=== PATIENT | female | born 1930 | race American Indian/Alaskan Native ===

== ENCOUNTER 2016-05-31 11:38 | Emergency (ER) | payer MEDICARE ==
[2016-05-31 14:32] LABS: Urine Drugs of Abuse Note Disclamer
[2016-05-31 15:06] LABS: Hematocrit 40.5 % (30.3-42.9); Hemoglobin 13.4 gm/dl (10.1-14.3); Mean Corpuscular HGB Conc 33 % (30-34); Mean Corpuscular Hemoglobin 30 pg (28-32); Mean Corpuscular Volume 90 fl (79-97); Platelet Count 223 K/mm3 (140-440); Red Blood Count 4.52 M/mm3 (3.65-5.03); Red Cell Distribution Width 13.5 % (13.2-15.2)
[2016-05-31 15:25] LABS: Bilirubin,Urine NEG (Negative); Blood,Urine SM (Negative); Ketones,Urine NEG (Negative); Leukocyte Esterase,Urine NEG (Negative); Mucus,Urine FEW /HPF; Nitrite,Urine NEG (Negative); Protein,Urine <15 mg/dL mg/dL (Negative); Urobilinogen,Urine < 2.0 mg/dL (<2.0); WBC,Urine < 1.0 /HPF (0.0-6.0)
[2016-05-31 15:26] LABS: Anion Gap 22 mmol/L; BUN/Creatinine Ratio 17.77; Blood Urea Nitrogen 16 mg/dL (7-17); Calcium 9.2 mg/dL (8.4-10.2); Carbon Dioxide 24 mmol/L (22-30); Chloride 100.8 mmol/L (98-107); Glucose 124 mg/dL (65-100); Sodium 143 mmol/L (137-145)
--- NOTE | 2016-05-31 16:31 | Emergency Department Report ---
HPI - General Chief Complaint: Psych Time Seen by Provider: 05/31/16 15:54 - HPI HPI: The patient is a 86-year-old female who presents from living facility for evaluation of mental health. [facility] staff, the patient has exhibited agitation and aggression for the past one day, constant, severe. The patient states that she has been sad and angry. She also reports hearing voices. The patient denies fever, headache, unexplained weight loss or weight gain, heat or cold intolerance, skin, hair, or nail changes, neuro deficits, homicidal ideations, or visual hallucinations. ED Past Medical Hx - Past Medical History Previous Medical History?: Yes Hx Hypertension: Yes Hx CVA: Yes Hx Congestive Heart Failure: No Hx Diabetes: No Hx Deep Vein Thrombosis: No Hx GERD: Yes Hx Psychiatric Treatment: Yes (Paranoid Schizophrenia) Hx Asthma: No Hx COPD: Yes Hx Dementia: Yes Hx HIV: No Additional medical history: alzheimers. High cholesterol. (paranoid schizophrenia, sister states is often sent to [facility] for eval then back to [facility]) - Surgical History Past Surgical History?: Yes Hx Pacemaker: No Hx Internal Defibrillator: No Additional Surgical History: tubial ligation, cataract bilateral - Social History Smoking Status: Never Smoker Substance Use Type: None - Medications Home Medications: Home Medications Medication Instructions Recorded Confirmed Last Taken Type Calcitonin,[place],Synthetic 3.7 ml NS DAILY 01/20/16 05/31/16 1 Day Ago History [Miacalcin] Calcium Carbonate/Vitamin D3 1 each PO BID 01/20/16 05/31/16 1 Day Ago History [Oyster Shell Calcium-Vit D Tab] Carvedilol [Coreg] 12.5 mg PO BID 01/20/16 05/31/16 1 Day Ago History Docusate Sodium [Colace] 100 mg PO BID 01/20/16 05/31/16 1 Day Ago History Donepezil [Aricept] 10 mg PO QDAY 01/20/16 05/31/16 1 Day Ago History LORazepam [Ativan] 0.5 mg PO Q6H PRN 01/20/16 05/31/16 1 Day Ago History Om-3/Dha/Epa/Fish Oil/L. Casei 1 each PO DAILY 01/20/16 05/31/16 1 Day Ago History [Restora Capsule] Pantoprazole [Protonix] 40 mg PO QDAY 01/20/16 05/31/16 1 Day Ago History Polyethylene Glycol 3350 [Miralax 17 gm PO QDAY 01/20/16 05/31/16 1 Day Ago History 3350] Quetiapine Fumarate [Seroquel] 100 mg PO QHS 01/20/16 05/31/16 1 Day Ago History Sertraline [Zoloft] 50 mg PO QDAY 01/20/16 05/31/16 1 Day Ago History cloNIDine-TTS PATCH [Catapres-Tts 1 patch TD Q7D 01/20/16 05/31/16 1 Day Ago History Patch] traZODone [Desyrel] 50 mg PO QHS 01/20/16 05/31/16 1 Day Ago History AtorvaSTATin [Lipitor] 10 mg PO DAILY 05/31/16 05/31/16 Unknown History ED Review of Systems ROS: Stated complaint: AMS Other details as noted in HPI Constitutional: denies: fever ENT: denies: throat or neck pain Respiratory: denies: cough, shortness of breath Cardiovascular: denies: chest pain Endocrine: denies unexplained weight loss or gain Gastrointestinal: denies: abdominal pain, nausea Genitourinary: denies: dysuria Musculoskeletal: denies: leg swelling Skin: denies: rash Neurological: denies: headache Hematological/Lymphatic: denies: easy bleeding or easy bruising Psych: reports sadness Physical Exam - Physical Exam Vital Signs: Vital Signs 05/31/16 05/31/16 13:16 14:12 Temperature 98.4 F Pulse Rate 52 L Respiratory 22 22 Rate Blood Pressure 187/70 [Left] O2 Sat by Pulse 98 Oximetry Physical Exam: General: well-nourished, well-developed, no acute distress Head: Normocephalic, atraumatic Eyes: normal sclera ENT: Mucous membranes are pink and moist Neck: trachea midline, neck supple, No neck stiffness, no cervical adenopathy Respiratory: Breath sounds equal bilaterally, no wheezing, rales, or rhonchi Cardio: S1 and S2 present, no murmurs, rubs, gallops, capillary refill is brisk Abdomen: Normoactive bowel sounds, soft abdomen, no tenderness Musc: No pitting edema Skin: No rash Neuro: alert, disoriented, no obvious neuro deficits Psych: flat affect, patient combative, poor insight, delusional ED Course Vital Signs 05/31/16 05/31/16 13:16 14:12 Temperature 98.4 F Pulse Rate 52 L Respiratory 22 22 Rate Blood Pressure 187/70 [Left] O2 Sat by Pulse 98 Oximetry ED Medical Decision Making - Lab Data Result diagrams: 05/31/16 14:52 05/31/16 14:52 - Medical Decision Making The patient was seen and examined by myself. The patient is placed on a monitoring manager and continuous pulse ox. On initial evaluation, the patient was found to be combative and agitated. The patient is given IM Ativan for her agitation. Labs are obtained. Lab results are grossly unremarkable. The patient is medically clear. Mental health is consulted. Mental health evaluates the patient and agrees that the patient is at risk of harm to self. A 1013 is completed. The patient will be admitted to a psychiatric facility once bed placement is obtained. Critical care attestation.: If time is entered above; I have spent that time in minutes in the direct care of this critically ill patient, excluding procedure time. ED Disposition Clinical Impression: Dementia Disposition: DISCHARGED TO HOME OR SELFCARE Is pt being admited?: No Does the pt Need Aspirin: No Condition: Stable Referrals: PRIMARY CARE, [Primary Care Provider] - 3-5 Days Time of Disposition: 16:30
[2016-05-31] MEDS ORDERED: ATIVAN ONE (18:59)
[2016-05-31] MEDS ORDERED: ATIVAN IM ONE (19:07)
[2016-05-31] MEDS ORDERED: MILK OF MAGNESIA PO PRN (20:39)
[2016-05-31] MEDS ORDERED: TYLENOL PO PRN (20:39)
[2016-05-31] MEDS ORDERED: ALUM-MAG HYDROX-SIMETH 200-200-20MG/5ML PO PRN (20:39)
[2016-05-31] MEDS ORDERED: ATIVAN IM PRN (20:39)
[2016-05-31] MEDS ORDERED: ATIVAN PO PRN (20:40)
[2016-05-31] MEDS ORDERED: VITAMIN D3 PO SCH (22:00)
[2016-05-31] MEDS ORDERED: OYSCO D 500 MG-200 UNIT PO SCH (22:00)
[2016-05-31] MEDS ORDERED: COREG PO SCH (22:00)
[2016-05-31] MEDS ORDERED: CALCIUM CARBONATE PO SCH (22:00)
--- NOTE | 2016-05-31 22:01 | Cat Scan Report ---
FINAL REPORT PROCEDURE: CT HEAD/BRAIN WO CON TECHNIQUE: Computerized tomography of the head was performed without contrast material. HISTORY: headache COMPARISON: Prior CT scan of the brain 01/20/2016 FINDINGS: Brain: There is no evidence of intracranial hemorrhage. No parenchymal hemorrhage is seen. No mass lesions or mass effect is identified. No abnormal extra-axial fluid collections or masses are seen. Small old lacunar infarct again visualized medial aspect right side of the thalamus. Old lacunar infarcts again visualized in the left caudate nucleus. There is an interval lacunar infarct in the right caudate nucleus although it is sharply defined low-density suggesting a mature lacunar infarct. There is some decreased density seen in the periventricular white matter without mass effect. This is fairly symmetric and does not exhibit any mass effect consistent with gliosis probably on the basis of microvascular disease or white matter changes of aging. Ventricles: The ventricles, sulcal pattern and fissures are prominent consistent with atrophy. Bones: No evidence of acute fracture. Paranasal sinuses: clear Mastoid air cells: clear IMPRESSION: There is evidence of moderate atrophy and gliosis. Several old lacunar infarcts are visualized as described. There is a new lesion visualized in the right caudate nucleus compared to the prior study performed on 01/20/2016 although appears to represent a mature lacunar infarct. No acute intracranial abnormalities are identified today.
[2016-06-01 01:17] VITALS: BP 155/67
[2016-06-01] MEDS ORDERED: PROTONIX PO SCH (10:00)
[2016-06-01] MEDS ORDERED: CALCITONIN SALMON SYNTHETIC NS SCH (10:00)
== END 2016-06-01 00:50 | disposition home or self-care (01) ==
LOC: ED 11:38
DX: F02.80 Dementia in other diseases classified elsewhere, unspecified severity, without behavioral disturbance, psychotic disturbance, mood disturbance, and anxiety (principal); G30.9 Alzheimer's disease, unspecified; I10 Essential (primary) hypertension; K21.9 Gastro-esophageal reflux disease without esophagitis; J44.9 Chronic obstructive pulmonary disease, unspecified
CPT/HCPCS: 36415; 70450; 80048; 80307; 81001; 85027; 96372; 99285; G0480; J2060; 80320; A9270-GY

== ENCOUNTER 2017-01-19 22:57 | Inpatient (IN) | payer MEDICARE ==
[2017-01-20 00:53] LABS: Basophils % (Auto) 0.5 % (0.0-1.8); Eosinophils % (Auto) 0.2 % (0.0-4.3); Hematocrit 44.1 % (30.3-42.9); Hemoglobin 14.1 gm/dl (10.1-14.3); Mean Corpuscular HGB Conc 32 % (30-34); Mean Corpuscular Hemoglobin 29 pg (28-32); Mean Corpuscular Volume 90 fl (79-97); Platelet Count 215 K/mm3 (140-440); Red Blood Count 4.93 M/mm3 (3.65-5.03); Red Cell Distribution Width 13.4 % (13.2-15.2); White Blood Count 13.8 K/mm3 (4.5-11.0)
[2017-01-20] MEDS ORDERED: NACL ONE (01:02)
[2017-01-20 01:23] LABS: Alanine Aminotransferase 15 units/L (7-56); Albumin 3.5 g/dL (3.9-5); Albumin/Globulin Ratio 0.8 %; Alkaline Phosphatase 97 units/L (35-129); Anion Gap 22 mmol/L; BUN/Creatinine Ratio 34; Blood Urea Nitrogen 27 mg/dL (7-17); Carbon Dioxide 29 mmol/L (22-30); Chloride 107.8 mmol/L (98-107); Glucose 91 mg/dL (65-100); Lipase 14 units/L (13-60); Potassium 3.8 mmol/L (3.6-5.0); Sodium 155 mmol/L (137-145)
[2017-01-20] MEDS ORDERED: GEODON IM ONE (01:25)
[2017-01-20] MEDS ORDERED: NACL 0.9% 1000 ML 1,000 ML IV ONE (01:27)
--- NOTE | 2017-01-20 01:29 | Emergency Department Report ---
ED General Adult HPI - General Chief complaint: Abdominal Pain Stated complaint: MED CLEARANCE Time Seen by Provider: 01/20/17 00:41 Source: patient, EMS (ems notes not available at time of chart dictation), RN notes reviewed, old records reviewed Mode of arrival: Stretcher Limitations: No Limitations - History of Present Illness Initial comments: This is an 87-year-old female, this provider has evaluated the patient in the past, has a past medical history of dementia, possible GI bleed, gastritis, erosive esophagitis Primary care Dr.: Dr. Hunter Wolff Patient sent to the ER by her senior living for evaluation of abdominal discomfort. Patient demented, cannot offer exacerbating or relieving factors. The ER, patient was found to have a distended abdomen, Liriano catheter placed, 100 mL of clear yellow urine is returned. A noncontrast CT scan of the abdomen pelvis is negative for acute disease, and laboratory studies demonstrated incidental hypernatremia. Patient was given 1 L of IV fluid, and required sedation with Geodon. Repeat laboratory studies demonstrated persistent hypernatremia. Patient most likely has dehydration secondary to poor oral intake. This is most likely chronic hypernatremia. Given this, the patient will be admitted for sodium correction and IV fluids. The patient may benefit from GI consultation for possible PEG tube placement, or hospice/palliative care measures. At this point time, the patient is hemodynamically stable, and I do not believe she requires an emergent gastroenterology or nephrology consult. We will start her on D5 whole, and 100 mL per hour. The case was presented to the Hospital physician, Dr. Burrell, who accepted the patient to the medical service for presumed chronic hypernatremia. -: unknown Consistency: constant Improves with: none Worsens with: none Associated Symptoms: other (per hpi) - Related Data Home Medications Medication Instructions Recorded Confirmed Last Taken Calcitonin,[place],Synthetic 3.7 ml NS DAILY 01/20/16 05/31/16 1 Day Ago [Miacalcin] Calcium Carbonate/Vitamin D3 1 each PO BID 01/20/16 05/31/16 1 Day Ago [Oyster Shell Calcium-Vit D Tab] Carvedilol [Coreg] 12.5 mg PO BID 01/20/16 05/31/16 1 Day Ago Docusate Sodium [Colace] 100 mg PO BID 10/11/16 02/20/17 1 Day Ago Donepezil [Aricept] 10 mg PO QDAY 01/20/16 05/31/16 1 Day Ago LORazepam [Ativan] 0.5 mg PO Q6H PRN 01/20/16 05/31/16 1 Day Ago Omeg3/Dha/Epa/Fish Oil/L.casei 1 each PO DAILY 01/20/16 05/31/16 1 Day Ago [Restora Capsule] Pantoprazole [Protonix] 40 mg PO QDAY 01/20/16 05/31/16 1 Day Ago Polyethylene Glycol 3350 [Miralax 17 gm PO QDAY 01/20/16 05/31/16 1 Day Ago 3350] Quetiapine Fumarate [Seroquel] 100 mg PO QHS 01/20/16 05/31/16 1 Day Ago Sertraline [Zoloft] 50 mg PO QDAY 01/20/16 05/31/16 1 Day Ago cloNIDine-TTS PATCH [Catapres-Tts 1 patch TD Q7D 01/20/16 05/31/16 1 Day Ago Patch] traZODone [Desyrel] 50 mg PO QHS 01/20/16 05/31/16 1 Day Ago AtorvaSTATin [Lipitor] 10 mg PO DAILY 05/31/16 05/31/16 Unknown Allergies Allergy/AdvReac Type Severity Reaction Status Date / Time clindamycin Allergy Anaphylaxis Verified 08/03/14 23:57 Penicillins Allergy Anaphylaxis Verified 08/03/14 23:57 ED Review of Systems ROS: Stated complaint: MED CLEARANCE Other details as noted in HPI Comment: Unobtainable due to pts medical conditions ED Past Medical Hx - Past Medical History Hx Hypertension: Yes Hx CVA: Yes Hx Congestive Heart Failure: No Hx Diabetes: No Hx Deep Vein Thrombosis: No Hx GERD: Yes Hx Psychiatric Treatment: Yes (Paranoid Schizophrenia) Hx Asthma: No Hx COPD: Yes Hx Dementia: Yes Hx HIV: No Additional medical history: alzheimers. High cholesterol. (paranoid schizophrenia, sister states is often sent to [facility] for eval then back to [facility]) - Surgical History Hx Pacemaker: No Hx Internal Defibrillator: No Additional Surgical History: tubial ligation, cataract bilateral - Social History Smoking Status: Former Smoker Substance Use Type: None - Medications Home Medications: Home Medications Medication Instructions Recorded Confirmed Last Taken Type Calcitonin,[place],Synthetic 3.7 ml NS DAILY 01/20/16 05/31/16 1 Day Ago History [Miacalcin] Calcium Carbonate/Vitamin D3 1 each PO BID 01/20/16 05/31/16 1 Day Ago History [Oyster Shell Calcium-Vit D Tab] Carvedilol [Coreg] 12.5 mg PO BID 01/20/16 05/31/16 1 Day Ago History Docusate Sodium [Colace] 100 mg PO BID 01/20/16 05/31/16 1 Day Ago History Donepezil [Aricept] 10 mg PO QDAY 01/20/16 05/31/16 1 Day Ago History LORazepam [Ativan] 0.5 mg PO Q6H PRN 01/20/16 05/31/16 1 Day Ago History Omeg3/Dha/Epa/Fish Oil/L.casei 1 each PO DAILY 01/20/16 05/31/16 1 Day Ago History [Restora Capsule] Pantoprazole [Protonix] 40 mg PO QDAY 01/20/16 05/31/16 1 Day Ago History Polyethylene Glycol 3350 [Miralax 17 gm PO QDAY 01/20/16 05/31/16 1 Day Ago History 3350] Quetiapine Fumarate [Seroquel] 100 mg PO QHS 01/20/16 05/31/16 1 Day Ago History Sertraline [Zoloft] 50 mg PO QDAY 01/20/16 05/31/16 1 Day Ago History cloNIDine-TTS PATCH [Catapres-Tts 1 patch TD Q7D 01/20/16 05/31/16 1 Day Ago History Patch] traZODone [Desyrel] 50 mg PO QHS 01/20/16 05/31/16 1 Day Ago History AtorvaSTATin [Lipitor] 10 mg PO DAILY 05/31/16 05/31/16 Unknown History ED Physical Exam - General Limitations: Altered Mental Status, Other (demented) General appearance: alert, in no apparent distress - Head Head exam: Present: atraumatic, normocephalic - Eye Eye exam: Present: normal appearance, EOMI - ENT ENT exam: Present: mucous membranes dry - Neck Neck exam: Present: normal inspection, full ROM. Absent: tenderness, meningismus - Respiratory Respiratory exam: Present: normal lung sounds bilaterally. Absent: respiratory distress - Cardiovascular Cardiovascular Exam: Present: regular rate, normal rhythm, normal heart sounds. Absent: bradycardia, tachycardia, irregular rhythm, systolic murmur, diastolic murmur, rubs, gallop - GI/Abdominal GI/Abdominal exam: Present: soft, distended, normal bowel sounds. Absent: tenderness, guarding, rebound, rigid, pulsatile mass - Extremities Exam Extremities exam: Present: normal inspection, pedal edema. Absent: calf tenderness - Back Exam Back exam: Present: normal inspection. Absent: tenderness, CVA tenderness (R), CVA tenderness (L), paraspinal tenderness, vertebral tenderness - Neurological Exam Neurological exam: Present: alert, other (patient is moving 4 extremities, the patient is a poor historian). Absent: motor sensory deficit - Skin Skin exam: Present: warm, dry, intact, normal color. Absent: rash ED Course Vital Signs 01/19/17 01/20/17 01/20/17 23:55 00:00 02:00 Temperature 98.8 F Pulse Rate 72 72 66 Respiratory 18 18 18 Rate Blood Pressure 178/80 Blood Pressure 156/97 129/89 [Right] O2 Sat by Pulse 98 96 97 Oximetry 01/20/17 03:20 Temperature Pulse Rate Respiratory 18 Rate Blood Pressure Blood Pressure [Right] O2 Sat by Pulse 98 Oximetry ED Medical Decision Making - Lab Data Result diagrams: 01/20/17 00:18 01/20/17 04:08 Vital Signs 01/19/17 01/20/17 01/20/17 23:55 00:00 02:00 Temperature 98.8 F Pulse Rate 72 72 66 Respiratory 18 18 18 Rate Blood Pressure 178/80 Blood Pressure 156/97 129/89 [Right] O2 Sat by Pulse 98 96 97 Oximetry 01/20/17 03:20 Temperature Pulse Rate Respiratory 18 Rate Blood Pressure Blood Pressure [Right] O2 Sat by Pulse 98 Oximetry Temp Pulse Resp BP Pulse Ox 98.8 F 66 18 129/89 98 01/19/17 23:55 01/20/17 02:00 01/20/17 03:20 01/20/17 02:00 01/20/17 03:20 Lab Results 01/20/17 01/20/17 01/20/17 Range/Units 00:18 00:18 02:54 WBC 13.8 H (4.5-11.0) K/mm3 RBC 4.93 (3.65-5.03) M/mm3 Hgb 14.1 (10.1-14.3) gm/dl Hct 44.1 H (30.3-42.9) % MCV 90 (79-97) fl MCH 29 (28-32) pg MCHC 32 (30-34) % RDW 13.4 (13.2-15.2) % Plt Count 215 (140-440) K/mm3 Lymph % (Auto) 21.0 (13.4-35.0) % [place] % (Auto) 7.4 H (0.0-7.3) % Eos % (Auto) 0.2 (0.0-4.3) % Baso % (Auto) 0.5 (0.0-1.8) % Lymph # 2.9 (1.2-5.4) K/mm3 [place] # 1.0 H (0.0-0.8) K/mm3 Eos # 0.0 (0.0-0.4) K/mm3 Baso # 0.1 (0.0-0.1) K/mm3 Seg Neutrophils % 70.9 H (40.0-70.0) % Seg Neutrophils # 9.8 H (1.8-7.7) K/mm3 Sodium 155 H (137-145) mmol/L Potassium 3.8 (3.6-5.0) mmol/L Chloride 107.8 H (98-107) mmol/L Carbon Dioxide 29 (22-30) mmol/L Anion Gap 22 mmol/L BUN 27 H (7-17) mg/dL Creatinine 0.8 (0.7-1.2) mg/dL Estimated GFR > 60 ml/min BUN/Creatinine Ratio 34 % Glucose 91 (65-100) mg/dL Calcium 9.0 (8.4-10.2) mg/dL Total Bilirubin 0.50 (0.1-1.2) mg/dL AST 23 (5-40) units/L ALT 15 (7-56) units/L Alkaline Phosphatase 97 (35-129) units/L Total Protein 8.0 (6.3-8.2) g/dL Albumin 3.5 L (3.9-5) g/dL Albumin/Globulin Ratio 0.8 % Lipase 14 (13-60) units/L Urine Color Yellow (Yellow) Urine Turbidity Clear (Clear) Urine pH 5.0 (5.0-7.0) Ur Specific [place] 1.030 (1.003-1.030) Urine Protein 30 mg/dl (Negative) mg/dL Urine Glucose (UA) Neg (Negative) mg/dL Urine Ketones 20 (Negative) mg/dL Urine Blood Mod (Negative) Urine Nitrite Neg (Negative) Urine Bilirubin Neg (Negative) Urine Urobilinogen < 2.0 (<2.0) mg/dL Ur Leukocyte Esterase Neg (Negative) Urine WBC (Auto) 1.0 (0.0-6.0) /HPF Urine RBC (Auto) 5.0 (0.0-6.0) /HPF U Epithel Cells (Auto) 1.0 (0-13.0) /HPF Urine Bacteria (Auto) 1+ (Negative) /HPF Urine Mucus 1+ /HPF 01/20/17 Range/Units 04:08 WBC (4.5-11.0) K/mm3 RBC (3.65-5.03) M/mm3 Hgb (10.1-14.3) gm/dl Hct (30.3-42.9) % MCV (79-97) fl MCH (28-32) pg MCHC (30-34) % RDW (13.2-15.2) % Plt Count (140-440) K/mm3 Lymph % (Auto) (13.4-35.0) % [place] % (Auto) (0.0-7.3) % Eos % (Auto) (0.0-4.3) % Baso % (Auto) (0.0-1.8) % Lymph # (1.2-5.4) K/mm3 [place] # (0.0-0.8) K/mm3 Eos # (0.0-0.4) K/mm3 Baso # (0.0-0.1) K/mm3 Seg Neutrophils % (40.0-70.0) % Seg Neutrophils # (1.8-7.7) K/mm3 Sodium 155 H (137-145) mmol/L Potassium 4.2 (3.6-5.0) mmol/L Chloride 109.9 H (98-107) mmol/L Carbon Dioxide 29 (22-30) mmol/L Anion Gap 20 mmol/L BUN 25 H (7-17) mg/dL Creatinine 0.7 (0.7-1.2) mg/dL Estimated GFR > 60 ml/min BUN/Creatinine Ratio 36 % Glucose 90 (65-100) mg/dL Calcium 8.5 (8.4-10.2) mg/dL Total Bilirubin (0.1-1.2) mg/dL AST (5-40) units/L ALT (7-56) units/L Alkaline Phosphatase (35-129) units/L Total Protein (6.3-8.2) g/dL Albumin (3.9-5) g/dL Albumin/Globulin Ratio % Lipase (13-60) units/L Urine Color (Yellow) Urine Turbidity (Clear) Urine pH (5.0-7.0) Ur Specific [place] (1.003-1.030) Urine Protein (Negative) mg/dL Urine Glucose (UA) (Negative) mg/dL Urine Ketones (Negative) mg/dL Urine Blood (Negative) Urine Nitrite (Negative) Urine Bilirubin (Negative) Urine Urobilinogen (<2.0) mg/dL Ur Leukocyte Esterase (Negative) Urine WBC (Auto) (0.0-6.0) /HPF Urine RBC (Auto) (0.0-6.0) /HPF U Epithel Cells (Auto) (0-13.0) /HPF Urine Bacteria (Auto) (Negative) /HPF Urine Mucus /HPF - Radiology Data Radiology results: image reviewed interpreted by me: X-ray the chest is negative for acute disease, noncontrast CT scan of the abdomen and pelvis is negative for acute disease, chronic findings noted - Medical Decision Making Differential diagnosis: Dehydration, urinary obstruction, colitis, diverticulitis, bowel obstruction, hypernatremia Critical care attestation.: If time is entered above; I have spent that time in minutes in the direct care of this critically ill patient, excluding procedure time. ED Disposition Clinical Impression: Hypernatremia Disposition: DC-09 OP ADMIT IP TO THIS HOSP Is pt being admited?: Yes Condition: Fair Instructions: Abdominal Pain (ED) Referrals: PRIMARY CARE, [Primary Care Provider] - 3-5 Days
--- NOTE | 2017-01-20 03:15 | Cat Scan Report ---
FINAL REPORT EXAM: CT ABDOMEN PELVIS WO CON HISTORY: abdominal pain, distention TECHNIQUE: Routine axial imaging was obtained of the abdomen pelvis without IV or oral contrast enhancement. Comparison is made to the study of 01/20/2016. FINDINGS: Images through the lung bases reveal increased markings in the right lower lobe secondary to scarring versus atelectasis. Pleural fluid is not seen. The liver is normal in size and reveals stable benign cyst in the right hepatic lobe posteriorly measuring 2.7 cm in diameter. The gallbladder is mildly distended. There are no stones or secondary signs of acute cholecystitis. The biliary tree appears normal. The pancreas is atrophic. The adrenal glands appear normal. The kidneys show no evidence of stones or hydronephrosis. The bowel loops are normal in caliber and course. The appendix appears normal. Free fluid is not seen. In the pelvis the uterus reveals diffuse calcifications compatible with involuted fibroids. There is a Liriano catheter in the bladder. There is no evidence of adenopathy or free fluid. The skeletal structures reveal extensive arthritic changes in the lumbar spine. IMPRESSION: No acute process in the abdomen and pelvis. Stable benign cysts in the right hepatic lobe. Calcified fibroids in the uterus.
[2017-01-20 03:43] LABS: Bacteria,Urine 1+ /HPF (Negative); Bilirubin,Urine NEG (Negative); Blood,Urine MOD (Negative); Ketones,Urine 20 mg/dL (Negative); Leukocyte Esterase,Urine NEG (Negative); Mucus,Urine 1+ /HPF; Nitrite,Urine NEG (Negative); Urobilinogen,Urine < 2.0 mg/dL (<2.0)
[2017-01-20 04:42] LABS: BUN/Creatinine Ratio 36; Blood Urea Nitrogen 25 mg/dL (7-17); Calcium 8.5 mg/dL (8.4-10.2); Carbon Dioxide 29 mmol/L (22-30); Chloride 109.9 mmol/L (98-107); Glucose 90 mg/dL (65-100); Sodium 155 mmol/L (137-145)
[2017-01-20] MEDS ORDERED: D5W 1,000 ML IV SCH (05:00)
[2017-01-20 05:04] LABS: Anion Gap 20 mmol/L; Potassium 4.2 mmol/L (3.6-5.0)
--- NOTE | 2017-01-20 07:28 | XRay Report ---
AP CHEST: HISTORY: Altered mental status, evaluate for pneumonia. Heart size and pulmonary venous structures appear borderline to mildly increased which is a new finding since 01/20/16. The lungs are clear otherwise. No evidence for pneumonia, large pleural effusion or pneumothorax. The bony structures are grossly intact. IMPRESSION: Borderline heart size and pulmonary venous structures. No evidence for pneumonia.
--- NOTE | 2017-01-20 08:54 | History and Physical Report ---
History of Present Illness Date of examination: 01/20/17 Date of admission: 01/20/2017 Chief complaint: Abdominal pain History of present illness: Patient is a a 85 years old female with Dementia, Paranoid Schizophrenia, HTN, GI Bleed/Erosive Gastritis,COPD, HLD presents to ED for evaluation abdominal discomfort. She is a poor historian in that she becomes very agitated when asked any questions & therefore unable to give review systems or history. She is demented;history taken from medical records and ED staff. In the Emergency Department, patient was found to have a distended abdomen, Liriano catheter placed , 100 mL of clear yellow urine. No reports of nausea, vomiting, chest pain, Palpitation, difficulty breathing, falls, trauma, cough, unintentional weight loss, fever,or night sweats. Past History Past Medical History: COPD ( GI Bleed/Erosive Gastritis,), hypertension, hyperlipidemia Past Surgical History: Other (unable to obtain due to patient mental status) Social history: other (unable to obtain due to patient mental status) Family history: other (unable to obtain due to patient mental status) Medications and Allergies Allergies Allergy/AdvReac Type Severity Reaction Status Date / Time clindamycin Allergy Anaphylaxis Verified 08/03/14 23:57 Penicillins Allergy Anaphylaxis Verified 08/03/14 23:57 Home Medications Medication Instructions Recorded Confirmed Last Taken Type Calcitonin,Dunnellon,Synthetic 3.7 ml NS DAILY 01/20/16 05/31/16 1 Day Ago History [Miacalcin] Calcium Carbonate/Vitamin D3 1 each PO BID 01/20/16 05/31/16 1 Day Ago History [Oyster Shell Calcium-Vit D Tab] Carvedilol [Coreg] 12.5 mg PO BID 01/20/16 05/31/16 1 Day Ago History Docusate Sodium [Colace] 100 mg PO BID 01/20/16 05/31/16 1 Day Ago History Donepezil [Aricept] 10 mg PO QDAY 01/20/16 05/31/16 1 Day Ago History LORazepam [Ativan] 0.5 mg PO Q6H PRN 01/20/16 05/31/16 1 Day Ago History Omeg3/Dha/Epa/Fish Oil/L.casei 1 each PO DAILY 01/20/16 05/31/16 1 Day Ago History [Restora Capsule] Pantoprazole [Protonix] 40 mg PO QDAY 01/20/16 05/31/16 1 Day Ago History Polyethylene Glycol 3350 [Miralax 17 gm PO QDAY 01/20/16 05/31/16 1 Day Ago History 3350] Quetiapine Fumarate [Seroquel] 100 mg PO QHS 01/20/16 05/31/16 1 Day Ago History Sertraline [Zoloft] 50 mg PO QDAY 01/20/16 05/31/16 1 Day Ago History cloNIDine-TTS PATCH [Catapres-Tts 1 patch TD Q7D 01/20/16 05/31/16 1 Day Ago History Patch] traZODone [Desyrel] 50 mg PO QHS 01/20/16 05/31/16 1 Day Ago History AtorvaSTATin [Lipitor] 10 mg PO DAILY 05/31/16 05/31/16 Unknown History Active Meds: Active Medications Acetaminophen (Tylenol) 650 mg PO Q4H PRN PRN Reason: Pain MILD(1-3)/Fever >100.5/GUEVARA Atorvastatin Calcium (Lipitor) 10 mg PO DAILY [facility] Bisacodyl (Dulcolax) 10 mg AL QDAY PRN PRN Reason: Constipation unrelieved by MOM Carvedilol (Coreg) 12.5 mg PO BID [facility] Clonidine HCl (Catapres-Tts Patch) mg TD Q7D [facility] Donepezil HCl (Aricept) 10 mg PO QDAY [facility] Enoxaparin Sodium (Lovenox) 40 mg SUB-Q QDAY [facility] Dextrose (D5w) 1,000 mls @ 100 mls/hr IV DIRECT [facility] Sodium Chloride (Nacl 0.9% 1000 Ml) 1,000 mls @ 100 mls/hr IV DIRECT [facility] Miscellaneous Medication (Calcitonin,Dunnellon,Synthetic [Miacalcin]) 3.7 ml NS DAILY [facility] Miscellaneous Medication (Calcium Carbonate/Vitamin D3 [Oyster Shell Calcium- Vit D Tab]) 1 each PO BID [facility] Miscellaneous Medication (Omeg3/Dha/Epa/Fish Oil/L.Casei [Restora Capsule]) 1 each PO DAILY [facility] Morphine Sulfate (Morphine) 2 mg IV Q4H PRN PRN Reason: Pain, Moderate (4-6) Pantoprazole Sodium (Protonix) 40 mg PO QDAY [facility] Polyethylene Glycol (Miralax 3350) 17 gm PO QDAY [facility] Quetiapine Fumarate (Seroquel) 100 mg PO QHS [facility] Sertraline HCl (Zoloft) 50 mg PO QDAY [facility] Trazodone HCl (Desyrel) 50 mg PO QHS [facility] Review of Systems ROS unobtainable: due to mental status (unable to obtain due to patient mental status) Constitutional: no weight loss, no weight gain, no fever, no chills Exam - Constitutional Vitals: Temp Pulse Resp BP Pulse Ox 98 F 66 19 154/74 96 01/20/17 07:35 01/20/17 07:35 01/20/17 07:35 01/20/17 07:35 01/20/17 07:35 General appearance: Present: no acute distress, other (altered mental status) - EENT Eyes: Present: PERRL ENT: clear oral mucosa - Neck Neck: Present: supple - Respiratory Respiratory effort: normal Respiratory: bilateral: CTA - Cardiovascular Rhythm: regular Heart Sounds: Present: S1 & S2 - Abdominal General gastrointestinal: Present: soft, non-tender Female genitourinary: Present: deferred - Rectal Rectal Exam: deferred - Integumentary Integumentary: Present: clear, warm, dry - Musculoskeletal Musculoskeletal: strength equal bilaterally - Psychiatric Psychiatric: intact judgment & insight (impaired judgment) - Neurologic Neurologic: moves all extremities - Allied Health Allied health notes reviewed: nursing Results - Labs CBC & Chem 7: 01/20/17 00:18 01/20/17 04:08 Labs: Laboratory Last Values WBC 13.8 K/mm3 (4.5-11.0) H 01/20/17 00:18 RBC 4.93 M/mm3 (3.65-5.03) 01/20/17 00:18 Hgb 14.1 gm/dl (10.1-14.3) 01/20/17 00:18 Hct 44.1 % (30.3-42.9) H 01/20/17 00:18 MCV 90 fl (79-97) 01/20/17 00:18 MCH 29 pg (28-32) 01/20/17 00:18 MCHC 32 % (30-34) 01/20/17 00:18 RDW 13.4 % (13.2-15.2) 01/20/17 00:18 Plt Count 215 K/mm3 (140-440) 01/20/17 00:18 Lymph % (Auto) 21.0 % (13.4-35.0) 01/20/17 00:18 [place] % (Auto) 7.4 % (0.0-7.3) H 01/20/17 00:18 Eos % (Auto) 0.2 % (0.0-4.3) 01/20/17 00:18 Baso % (Auto) 0.5 % (0.0-1.8) 01/20/17 00:18 Lymph # 2.9 K/mm3 (1.2-5.4) 01/20/17 00:18 [place] # 1.0 K/mm3 (0.0-0.8) H 01/20/17 00:18 Eos # 0.0 K/mm3 (0.0-0.4) 01/20/17 00:18 Baso # 0.1 K/mm3 (0.0-0.1) 01/20/17 00:18 Seg Neutrophils % 70.9 % (40.0-70.0) H 01/20/17 00:18 Seg Neutrophils # 9.8 K/mm3 (1.8-7.7) H 01/20/17 00:18 Sodium 155 mmol/L (137-145) H 01/20/17 04:08 Potassium 4.2 mmol/L (3.6-5.0) 01/20/17 04:08 Chloride 109.9 mmol/L (98-107) H 01/20/17 04:08 Carbon Dioxide 29 mmol/L (22-30) 01/20/17 04:08 Anion Gap 20 mmol/L 01/20/17 04:08 BUN 25 mg/dL (7-17) H 01/20/17 04:08 Creatinine 0.7 mg/dL (0.7-1.2) 01/20/17 04:08 Estimated GFR > 60 ml/min 01/20/17 04:08 BUN/Creatinine Ratio 36 % 01/20/17 04:08 Glucose 90 mg/dL (65-100) 01/20/17 04:08 Calcium 8.5 mg/dL (8.4-10.2) 01/20/17 04:08 Total Bilirubin 0.50 mg/dL (0.1-1.2) 01/20/17 00:18 AST 23 units/L (5-40) 01/20/17 00:18 ALT 15 units/L (7-56) 01/20/17 00:18 Alkaline Phosphatase 97 units/L (35-129) 01/20/17 00:18 Total Protein 8.0 g/dL (6.3-8.2) 01/20/17 00:18 Albumin 3.5 g/dL (3.9-5) L 01/20/17 00:18 Albumin/Globulin Ratio 0.8 % 01/20/17 00:18 Lipase 14 units/L (13-60) 01/20/17 00:18 Urine Color Yellow (Yellow) 01/20/17 02:54 Urine Turbidity Clear (Clear) 01/20/17 02:54 Urine pH 5.0 (5.0-7.0) 01/20/17 02:54 Ur Specific [place] 1.030 (1.003-1.030) 01/20/17 02:54 Urine Protein 30 mg/dl mg/dL (Negative) 01/20/17 02:54 Urine Glucose (UA) Neg mg/dL (Negative) 01/20/17 02:54 Urine Ketones 20 mg/dL (Negative) 01/20/17 02:54 Urine Blood Mod (Negative) 01/20/17 02:54 Urine Nitrite Neg (Negative) 01/20/17 02:54 Urine Bilirubin Neg (Negative) 01/20/17 02:54 Urine Urobilinogen < 2.0 mg/dL (<2.0) 01/20/17 02:54 Ur Leukocyte Esterase Neg (Negative) 01/20/17 02:54 Urine WBC (Auto) 1.0 /HPF (0.0-6.0) 01/20/17 02:54 Urine RBC (Auto) 5.0 /HPF (0.0-6.0) 01/20/17 02:54 U Epithel Cells (Auto) 1.0 /HPF (0-13.0) 01/20/17 02:54 Urine Bacteria (Auto) 1+ /HPF (Negative) 01/20/17 02:54 Urine Mucus 1+ /HPF 01/20/17 02:54 - Imaging and Cardiology Chest x-ray: image reviewed (Unremarkable ) CT scan - abdomen: image reviewed (Abdomen/pelvic noncontrast CT scan of the abdomen pelvis is negative for acute disease,) Assessment and Plan Assessment and plan: Patient is a a 85 years old female with Dementia, Paranoid Schizophrenia, HTN, GI Bleed/Erosive Gastritis,COPD, HLD presents to ED for evaluation abdominal discomfort. She is a poor historian in that she becomes very agitated when asked any questions & therefore unable to give review systems or history. Abdominal pain Abdomen/pelvic noncontrast CT scan of the abdomen pelvis is negative for acute disease, Antiemetic when necessary pain Pain control GI consulted Supportive care Dehydration Due to poor oral intake Started on IV fluid hydration Closely monitor Hypertension Continue home antihypertensive medication Closely monitor blood pressure Hypernatremia Due to poor oral intake IV fluid hydration with D5W that will correct it Closely monitor Electrolytes Paranoid Schizophrenia Stable at this point. Resume home antipsychotic medication Mild malnutrition/dysphasia Nutrition consulted GI consulted for possible PEG-Placement Hyperlipidemia Resume home antilipid agents. DVT prophylaxis Lovenox Advance Directives: Yes VTE prophylaxis?: Chemical Contraindication Mechanical VTE Prophylaxis: Treatment Not Indicated Plan of care discussed with patient/family: Yes
[2017-01-20] MEDS ORDERED: CALCIUM CARBONATE PO SCH (10:00)
[2017-01-20] MEDS ORDERED: [UNRECOGNIZED DRUG - OTHER] PO SCH (10:00)
[2017-01-20] MEDS ORDERED: CASEI PO SCH (10:00)
[2017-01-20] MEDS ORDERED: VITAMIN D3 PO SCH (10:00)
[2017-01-20] MEDS ORDERED: CALCITONIN SALMON SYNTHETIC NS SCH (10:00)
[2017-01-20] MEDS ORDERED: FISH OIL PO SCH (10:00)
[2017-01-20] MEDS ORDERED: DHA PO SCH (10:00)
[2017-01-20] MEDS ORDERED: EPA PO SCH (10:00)
[2017-01-20] MEDS ORDERED: DULCOLAX PR PRN (10:00)
[2017-01-20] MEDS ORDERED: NACL 0.9% 1000 ML 1,000 ML IV SCH (10:00)
[2017-01-20] MEDS ORDERED: COREG ONE (10:11)
[2017-01-20] MEDS: PROTONIX PO SCH (10:19)
[2017-01-20] MEDS: ZOLOFT PO SCH (10:19)
[2017-01-20] MEDS: COREG PO SCH ×2 (10:19→23:08)
[2017-01-20] MEDS: LOVENOX SUB-Q SCH (10:19)
[2017-01-20] MEDS: MORPHINE IV PRN (13:27)
[2017-01-20] MEDS: MIRALAX 3350 PO SCH (13:28)
[2017-01-20] MEDS: CALTRATE PLUS PO SCH ×2 (13:28→23:09)
[2017-01-20] MEDS: ARICEPT PO SCH (13:29)
[2017-01-20] MEDS: CATAPRES-TTS PATCH TD SCH (13:30)
[2017-01-20] MEDS: D5W 1,000 ML IV SCH (23:07)
[2017-01-20] MEDS: DESYREL PO SCH (23:08)
[2017-01-21] MEDS: MORPHINE IV PRN (06:32)
[2017-01-21 08:16] LABS: Basophils % (Auto) 0.4 % (0.0-1.8); Eosinophils % (Auto) 0.7 % (0.0-4.3); Hematocrit 41.6 % (30.3-42.9); Hemoglobin 13.4 gm/dl (10.1-14.3); Mean Corpuscular HGB Conc 32 % (30-34); Mean Corpuscular Hemoglobin 29 pg (28-32); Mean Corpuscular Volume 90 fl (79-97); Platelet Count 180 K/mm3 (140-440); Red Blood Count 4.64 M/mm3 (3.65-5.03); Red Cell Distribution Width 12.9 % (13.2-15.2); White Blood Count 10.7 K/mm3 (4.5-11.0)
[2017-01-21 08:23] LABS: Anion Gap 16 mmol/L; BUN/Creatinine Ratio 25; Blood Urea Nitrogen 15 mg/dL (7-17); Calcium 7.7 mg/dL (8.4-10.2); Carbon Dioxide 27 mmol/L (22-30); Chloride 100.9 mmol/L (98-107); Glucose 145 mg/dL (65-100); Potassium 3.2 mmol/L (3.6-5.0); Sodium 141 mmol/L (137-145)
--- NOTE | 2017-01-21 10:48 | Gastroenterology Consultation ---
<HARLEENMIMINELDA AC - Last Filed: 01/21/17 11:02> History of Present Illness - Reason for Consult Consult date: 01/21/17 abdominal pain, evaluation for PEG Requesting physician: GABY TAVARES - History of Present Illness Ms. Flores is an 87 y/o old female with Dementia, Paranoid Schizophrenia, HTN , hx of GI Bleed/Erosive Gastritis, COPD, HLD presents to ED for evaluation abdominal discomfort. She is a poor historian, and only answers a few questions appropriately. Most of history taken from medical records and nursing. In the Emergency Department, patient was found to have a distended abdomen, Liriano catheter placed, 100 mL of clear yellow urine. No reports of nausea, vomiting. There is some concern that the patient is not taking in enough PO. We have been asked to assist in evaluation of abdominal pain and decreased PO intake. Celsa was last seen by our service in 2016 for possible GI bleed that resolved. She has also been seen in the remote past by Dr. Gandhi and Dr. Bird for SBO that resolved with conservative management,and abdomianal distention and colitis ( flex sig 2013). Past History Past Medical History: COPD ( GI Bleed/Erosive Gastritis,), hypertension, hyperlipidemia Past Surgical History: Other (unable to obtain due to patient mental status) Social history: other (unable to obtain due to patient mental status) Family history: other (unable to obtain due to patient mental status) Medications and Allergies Allergies Allergy/AdvReac Type Severity Reaction Status Date / Time clindamycin Allergy Anaphylaxis Verified 08/03/14 23:57 Penicillins Allergy Anaphylaxis Verified 08/03/14 23:57 Home Medications Medication Instructions Recorded Confirmed Last Taken Type Calcitonin,Spencer,Synthetic 3.7 ml NS DAILY 01/20/16 05/31/16 1 Day Ago History [Miacalcin] Calcium Carbonate/Vitamin D3 1 each PO BID 01/20/16 05/31/16 1 Day Ago History [Oyster Shell Calcium-Vit D Tab] Carvedilol [Coreg] 12.5 mg PO BID 01/20/16 05/31/16 1 Day Ago History Docusate Sodium [Colace] 100 mg PO BID 01/20/16 05/31/16 1 Day Ago History Donepezil [Aricept] 10 mg PO QDAY 01/20/16 05/31/16 1 Day Ago History LORazepam [Ativan] 0.5 mg PO Q6H PRN 01/20/16 05/31/16 1 Day Ago History Omeg3/Dha/Epa/Fish Oil/L.casei 1 each PO DAILY 01/20/16 05/31/16 1 Day Ago History [Restora Capsule] Pantoprazole [Protonix] 40 mg PO QDAY 01/20/16 05/31/16 1 Day Ago History Polyethylene Glycol 3350 [Miralax 17 gm PO QDAY 01/20/16 05/31/16 1 Day Ago History 3350] Quetiapine Fumarate [Seroquel] 100 mg PO QHS 01/20/16 05/31/16 1 Day Ago History Sertraline [Zoloft] 50 mg PO QDAY 01/20/16 05/31/16 1 Day Ago History cloNIDine-TTS PATCH [Catapres-Tts 1 patch TD Q7D 01/20/16 05/31/16 1 Day Ago History Patch] traZODone [Desyrel] 50 mg PO QHS 01/20/16 05/31/16 1 Day Ago History AtorvaSTATin [Lipitor] 10 mg PO DAILY 05/31/16 05/31/16 Unknown History Active Meds: Active Medications Acetaminophen (Tylenol) 650 mg PO Q4H PRN PRN Reason: Pain MILD(1-3)/Fever >100.5/GUEVARA Atorvastatin Calcium (Lipitor) 10 mg PO QHS [facility] Last Admin: 01/20/17 23:08 Dose: 10 mg Bisacodyl (Dulcolax) 10 mg IN QDAY PRN PRN Reason: Constipation unrelieved by MOM Carvedilol (Coreg) 12.5 mg PO BID [facility] Last Admin: 01/20/17 23:08 Dose: 12.5 mg Clonidine HCl (Catapres-Tts Patch) 0.2 mg TD Th [facility] Last Admin: 01/20/17 13:30 Dose: 0.2 mg Donepezil HCl (Aricept) 10 mg PO QDAY [facility] Last Admin: 01/20/17 13:29 Dose: 10 mg Enoxaparin Sodium (Lovenox) 40 mg SUB-Q QDAY [facility] Last Admin: 01/20/17 10:19 Dose: 40 mg Dextrose (D5w) 1,000 mls @ 100 mls/hr IV DIRECT [facility] Last Admin: 01/20/17 23:07 Dose: 100 mls/hr Influenza Virus Vaccine Quadrival (Fluarix Quad [id number](36 Mos+)) 0.5 ml IM .ONCE ONE Stop: 01/21/17 12:01 Miscellaneous Medication (Calcitonin,Spencer,Synthetic [Miacalcin]) 3.7 ml NS DAILY [facility] Morphine Sulfate (Morphine) 2 mg IV Q4H PRN PRN Reason: Pain, Moderate (4-6) Last Admin: 01/21/17 06:32 Dose: 2 mg Multivitamins/Minerals (Caltrate Plus) 1 each PO BID [facility] Last Admin: 01/20/17 23:09 Dose: 1 each Pantoprazole Sodium (Protonix) 40 mg PO QDAY [facility] Last Admin: 01/20/17 10:19 Dose: 40 mg Polyethylene Glycol (Miralax 3350) 17 gm PO QDAY [facility] Last Admin: 01/20/17 13:28 Dose: 17 gm Quetiapine Fumarate (Seroquel) 100 mg PO QHS [facility] Last Admin: 01/20/17 23:09 Dose: 100 mg Sertraline HCl (Zoloft) 50 mg PO QDAY [facility] Last Admin: 01/20/17 10:19 Dose: 50 mg Trazodone HCl (Desyrel) 50 mg PO QHS [facility] Last Admin: 01/20/17 23:08 Dose: 50 mg Review of Systems - Review of Systems ROS unobtainable: due to mental status Exam - Constitutional Vital Signs: Temp Pulse Resp BP Pulse Ox 97.4 F L 60 20 148/68 94 01/21/17 08:05 01/21/17 08:05 01/21/17 08:05 01/21/17 08:05 01/21/17 08:05 General appearance: no acute distress - EENT Eyes: EOM intact ENT: hearing intact - Neck Neck: supple - Respiratory Respiratory: bilateral: CTA - Cardiovascular Rhythm: regular Heart Sounds: Present: S1 & S2 - Gastrointestinal General gastrointestinal: Present: soft, non-tender, non-distended, normal bowel sounds - Integumentary Integumentary: Present: warm, dry - Neurologic Neurological: alert and oriented x3 - Psychiatric Psychiatric: cooperative - Labs CBC & Chem 7: 01/21/17 07:25 01/21/17 07:25 Lab Results: Laboratory Results - last 24 hr 01/21/17 01/21/17 01/21/17 07:25 07:25 07:25 WBC 10.7 RBC 4.64 Hgb 13.4 Hct 41.6 MCV 90 MCH 29 MCHC 32 RDW 12.9 L Plt Count 180 Lymph % (Auto) 17.7 [place] % (Auto) 7.1 Eos % (Auto) 0.7 Baso % (Auto) 0.4 Lymph # 1.9 [place] # 0.8 Eos # 0.1 Baso # 0.0 Seg Neutrophils % 74.1 H Seg Neutrophils # 7.9 H Sodium 141 D Potassium 3.2 L D Chloride 100.9 Carbon Dioxide 27 Anion Gap 16 BUN 15 Creatinine 0.6 L Estimated GFR > 60 BUN/Creatinine Ratio 25 Glucose 145 H Calcium 7.7 L Total Creatine Kinase 115 Assessment and Plan 1. Abdominal Discomfort? abdominal distention 2. Poor PO intake - Per exam, abdomen is soft, BS+ and non-tender. Pt has not had any complaints of pain since coming to the floor per nursing. CT did not show any acute process. She reports she is hungry. Nursing reports the patient eats on and off but has paranoid thoughts. We will start calorie count to document how much the patient is eating. There is concern for placing PEG in a patient with paranoid tendencies and dementia, as she may pull it out. We will also need to contact family if patient is not taking in enough PO and requires PEG. -Nutrition consult for calorie count -Lipase WNL, AST/ALT WNL, WBC WNL. - <ANN TORRES - Last Filed: 01/21/17 16:42> Medications and Allergies Active Meds: Active Medications Acetaminophen (Tylenol) 650 mg PO Q4H PRN PRN Reason: Pain MILD(1-3)/Fever >100.5/GUEVARA Atorvastatin Calcium (Lipitor) 10 mg PO QHS [facility] Last Admin: 01/20/17 23:08 Dose: 10 mg Bisacodyl (Dulcolax) 10 mg IN QDAY PRN PRN Reason: Constipation unrelieved by MOM Carvedilol (Coreg) 12.5 mg PO BID [facility] Last Admin: 01/21/17 14:30 Dose: 12.5 mg Clonidine HCl (Catapres-Tts Patch) 0.2 mg TD Th [facility] Last Admin: 01/20/17 13:30 Dose: 0.2 mg Donepezil HCl (Aricept) 10 mg PO QDAY [facility] Last Admin: 01/21/17 14:31 Dose: 10 mg Enoxaparin Sodium (Lovenox) 40 mg SUB-Q QDAY [facility] Last Admin: 01/21/17 14:32 Dose: 40 mg Dextrose (D5w) 1,000 mls @ 100 mls/hr IV DIRECT [facility] Last Admin: 01/20/17 23:07 Dose: 100 mls/hr Miscellaneous Medication (Calcitonin,Spencer,Synthetic [Miacalcin]) 3.7 ml NS DAILY [facility] Morphine Sulfate (Morphine) 2 mg IV Q4H PRN PRN Reason: Pain, Moderate (4-6) Last Admin: 01/21/17 06:32 Dose: 2 mg Multivitamins/Minerals (Caltrate Plus) 1 each PO BID [facility] Last Admin: 01/21/17 14:30 Dose: 1 each Pantoprazole Sodium (Protonix) 40 mg PO QDAY [facility] Last Admin: 01/21/17 14:31 Dose: 40 mg Polyethylene Glycol (Miralax 3350) 17 gm PO QDAY [facility] Last Admin: 01/21/17 14:31 Dose: 17 gm Quetiapine Fumarate (Seroquel) 100 mg PO QHS [facility] Last Admin: 01/20/17 23:09 Dose: 100 mg Sertraline HCl (Zoloft) 50 mg PO QDAY [facility] Last Admin: 01/21/17 14:31 Dose: 50 mg Trazodone HCl (Desyrel) 50 mg PO QHS [facility] Last Admin: 01/20/17 23:08 Dose: 50 mg Exam - Constitutional Vital Signs: Temp Pulse Resp BP Pulse Ox 97.4 F L 60 20 148/68 94 01/21/17 08:05 01/21/17 08:05 01/21/17 08:05 01/21/17 08:05 01/21/17 08:05 - Labs CBC & Chem 7: 01/21/17 07:25 01/21/17 07:25 Lab Results: Laboratory Results - last 24 hr 01/21/17 01/21/17 01/21/17 07:25 07:25 07:25 WBC 10.7 RBC 4.64 Hgb 13.4 Hct 41.6 MCV 90 MCH 29 MCHC 32 RDW 12.9 L Plt Count 180 Lymph % (Auto) 17.7 [place] % (Auto) 7.1 Eos % (Auto) 0.7 Baso % (Auto) 0.4 Lymph # 1.9 Coffee # 0.8 Eos # 0.1 Baso # 0.0 Seg Neutrophils % 74.1 H Seg Neutrophils # 7.9 H Sodium 141 D Potassium 3.2 L D Chloride 100.9 Carbon Dioxide 27 Anion Gap 16 BUN 15 Creatinine 0.6 L Estimated GFR > 60 BUN/Creatinine Ratio 25 Glucose 145 H Calcium 7.7 L Total Creatine Kinase 115 Assessment and Plan Patient seen and examined. Agree with note by Alcira Saul.
[2017-01-21] MEDS: CALTRATE PLUS PO SCH ×2 (14:30→23:00)
[2017-01-21] MEDS: COREG PO SCH ×2 (14:30→23:00)
[2017-01-21] MEDS: ARICEPT PO SCH (14:31)
[2017-01-21] MEDS: ZOLOFT PO SCH (14:31)
[2017-01-21] MEDS: PROTONIX PO SCH (14:31)
[2017-01-21] MEDS: MIRALAX 3350 PO SCH (14:31)
[2017-01-21] MEDS: LOVENOX SUB-Q SCH (14:32)
[2017-01-21] MEDS: D5W 1,000 ML IV SCH (19:51)
[2017-01-21] MEDS: Fluarix Quad 2017-2018(36 MOS+) IM ONE ×2 (19:56→20:08)
--- NOTE | 2017-01-21 20:19 | Progress Note ---
Assessment and Plan Assessment and plan: 87 -year-old woman with schizophrenia, dementia, hypertension, history of SBO and GIB due to erosive gastritis brought to the hospital for abdominal pain, decreased intake, evaluation for PEG placement 1. Abdominal pain Unclear if she really has abdominal discomfort (due to her schizophrenia/ dementia with paranoid thoughts) CT abdomen/pelvis with no acute abnormality LFTs, lipase within normal limits Per nursing, tolerates by mouth, but has decreased intake GI consulted for possible PEG placement; requested nutrition consult for calorie count 2. Hypernatremia Secondary to dehydration Resolved with IV fluids 3. Dehydration Due to poor intake IV fluids Nursing encouraging by mouth intake 4. Mild protein caloric malnutrition Due to poor intake Stone Splitter consulted for supplementation Considering PEG placement 5. Hypertension On clonidine patch and Coreg Monitor BP and adjust regimen as needed 6. Hyperlipidemia Continue statin 7. Paranoid schizophrenia Home medications, Seroquel/Zoloft/trazodone, restarted 8. Dementia On Aricept Supportive care 9. DVT prophylaxis Lovenox History Interval history: alert, but confused, answering only very simple questions appropriately per nursing staff, tolerating po, but decreased intake Hospitalist Physical - Constitutional Vitals: Temp Pulse Resp BP Pulse Ox 98.6 F 65 22 143/60 94 01/21/17 16:52 01/21/17 16:52 01/21/17 16:52 01/21/17 16:52 01/21/17 16:52 General appearance: Present: no acute distress, obese - EENT Eyes: Present: PERRL, EOM intact - Neck Neck: Present: supple, normal ROM. Absent: masses or JVD - Respiratory Respiratory effort: normal Respiratory: bilateral: CTA, negative: rhonchi, wheezing - Cardiovascular Rhythm: regular Heart Sounds: Present: S1 & S2. Absent: systolic murmur - Extremities Extremities: no ischemia - Abdominal General gastrointestinal: soft, non-tender, non-distended, normal bowel sounds - Psychiatric Psychiatric: cooperative - Neurologic Neurologic: CNII-XII intact, no focal deficits Results - Labs CBC & Chem 7: 01/21/17 07:25 01/23/17 05:44 Labs: Laboratory Last Values WBC 10.7 K/mm3 (4.5-11.0) 01/21/17 07:25 RBC 4.64 M/mm3 (3.65-5.03) 01/21/17 07:25 Hgb 13.4 gm/dl (10.1-14.3) 01/21/17 07:25 Hct 41.6 % (30.3-42.9) 01/21/17 07:25 MCV 90 fl (79-97) 01/21/17 07:25 MCH 29 pg (28-32) 01/21/17 07:25 MCHC 32 % (30-34) 01/21/17 07:25 RDW 12.9 % (13.2-15.2) L 01/21/17 07:25 Plt Count 180 K/mm3 (140-440) 01/21/17 07:25 Lymph % (Auto) 17.7 % (13.4-35.0) 01/21/17 07:25 [place] % (Auto) 7.1 % (0.0-7.3) 01/21/17 07:25 Eos % (Auto) 0.7 % (0.0-4.3) 01/21/17 07:25 Baso % (Auto) 0.4 % (0.0-1.8) 01/21/17 07:25 Lymph # 1.9 K/mm3 (1.2-5.4) 01/21/17 07:25 [place] # 0.8 K/mm3 (0.0-0.8) 01/21/17 07:25 Eos # 0.1 K/mm3 (0.0-0.4) 01/21/17 07:25 Baso # 0.0 K/mm3 (0.0-0.1) 01/21/17 07:25 Seg Neutrophils % 74.1 % (40.0-70.0) H 01/21/17 07:25 Seg Neutrophils # 7.9 K/mm3 (1.8-7.7) H 01/21/17 07:25 Sodium 141 mmol/L (137-145) D 01/21/17 07:25 Potassium 3.2 mmol/L (3.6-5.0) L D 01/21/17 07:25 Chloride 100.9 mmol/L (98-107) 01/21/17 07:25 Carbon Dioxide 27 mmol/L (22-30) 01/21/17 07:25 Anion Gap 16 mmol/L 01/21/17 07:25 BUN 15 mg/dL (7-17) 01/21/17 07:25 Creatinine 0.6 mg/dL (0.7-1.2) L 01/21/17 07:25 Estimated GFR > 60 ml/min 01/21/17 07:25 BUN/Creatinine Ratio 25 % 01/21/17 07:25 Glucose 145 mg/dL (65-100) H 01/21/17 07:25 Calcium 7.7 mg/dL (8.4-10.2) L 01/21/17 07:25 Total Bilirubin 0.50 mg/dL (0.1-1.2) 01/20/17 00:18 AST 23 units/L (5-40) 01/20/17 00:18 ALT 15 units/L (7-56) 01/20/17 00:18 Alkaline Phosphatase 97 units/L (35-129) 01/20/17 00:18 Total Creatine Kinase 115 units/L (30-135) 01/21/17 07:25 Total Protein 8.0 g/dL (6.3-8.2) 01/20/17 00:18 Albumin 3.5 g/dL (3.9-5) L 01/20/17 00:18 Albumin/Globulin Ratio 0.8 % 01/20/17 00:18 Lipase 14 units/L (13-60) 01/20/17 00:18 Urine Color Yellow (Yellow) 01/20/17 02:54 Urine Turbidity Clear (Clear) 01/20/17 02:54 Urine pH 5.0 (5.0-7.0) 01/20/17 02:54 Ur Specific [place] 1.030 (1.003-1.030) 01/20/17 02:54 Urine Protein 30 mg/dl mg/dL (Negative) 01/20/17 02:54 Urine Glucose (UA) Neg mg/dL (Negative) 01/20/17 02:54 Urine Ketones 20 mg/dL (Negative) 01/20/17 02:54 Urine Blood Mod (Negative) 01/20/17 02:54 Urine Nitrite Neg (Negative) 01/20/17 02:54 Urine Bilirubin Neg (Negative) 01/20/17 02:54 Urine Urobilinogen < 2.0 mg/dL (<2.0) 01/20/17 02:54 Ur Leukocyte Esterase Neg (Negative) 01/20/17 02:54 Urine WBC (Auto) 1.0 /HPF (0.0-6.0) 01/20/17 02:54 Urine RBC (Auto) 5.0 /HPF (0.0-6.0) 01/20/17 02:54 U Epithel Cells (Auto) 1.0 /HPF (0-13.0) 01/20/17 02:54 Urine Bacteria (Auto) 1+ /HPF (Negative) 01/20/17 02:54 Urine Mucus 1+ /HPF 01/20/17 02:54 - Imaging and Cardiology CT scan - abdomen: report reviewed (no acute abnormality)
[2017-01-21] MEDS: DESYREL PO SCH (23:00)
[2017-01-22] MEDS: PROTONIX PO SCH (10:06)
[2017-01-22] MEDS: CALTRATE PLUS PO SCH ×2 (10:06→23:06)
[2017-01-22] MEDS: ARICEPT PO SCH (10:06)
[2017-01-22] MEDS: ZOLOFT PO SCH (10:07)
[2017-01-22] MEDS: MIRALAX 3350 PO SCH (10:07)
[2017-01-22] MEDS: LOVENOX SUB-Q SCH (10:07)
[2017-01-22] MEDS: COREG PO SCH ×2 (10:11→23:05)
--- NOTE | 2017-01-22 10:15 | Gastroenterology Progress Note ---
Assessment and Plan GI: pt with some SOB today but per staff was tolerating po - will watch opo intake, calorie count per nutrition staff - will consider EGD/PEG based on progress, will attempt to discuss w/ family - will follow Subjective Date of service: 01/22/17 Interval history: - per staff pt ate well overnight, some SOB this am but otherwise no GI complaints Objective - Constitutional Vitals: Temp Pulse Resp BP Pulse Ox 97.7 F 69 22 148/58 98 01/22/17 08:02 01/22/17 08:02 01/22/17 08:02 01/22/17 10:11 01/22/17 09:07 General appearance: no acute distress - Respiratory Respiratory: bilateral: CTA - Cardiovascular Rhythm: regular Heart Sounds: Present: S1 & S2 - Gastrointestinal General gastrointestinal: Present: soft, non-tender - Labs CBC & Chem 7: 01/21/17 07:25 01/21/17 07:25
[2017-01-22] MEDS: D5W 1,000 ML IV SCH (18:44)
--- NOTE | 2017-01-22 21:32 | Progress Note ---
Assessment and Plan Assessment and plan: 87 -year-old woman with schizophrenia, dementia, hypertension, history of SBO and GIB due to erosive gastritis brought to the hospital for abdominal pain, decreased intake, evaluation for PEG placement 1. Abdominal pain Unclear if she really has abdominal discomfort (due to her schizophrenia/ dementia with paranoid thoughts) CT abdomen/pelvis with no acute abnormality LFTs, lipase within normal limits Per nursing, tolerates by mouth, but has decreased intake GI consulted for possible PEG placement; requested nutrition consult for calorie count 2. Hypernatremia Secondary to dehydration Resolved with IV fluids 3. Dehydration Due to poor intake IV fluids Nursing encouraging by mouth intake 4. Leukocytosis Likely reactive, no infectious source identified Resolved 5. Mild protein caloric malnutrition Due to poor intake Job Developer consulted for supplementation Considering PEG placement 6. Hypertension On clonidine patch and Coreg Monitor BP and adjust regimen as needed 7. Hyperlipidemia Continue statin 8. Paranoid schizophrenia Home medications, Seroquel/Zoloft/trazodone, restarted 9. Dementia On Aricept Supportive care 10. [facility] Hospital[facility] Physical - Constitutional Vitals: Temp Pulse Resp BP Pulse Ox 97.5 F L 58 L 20 121/54 95 01/22/17 19:51 01/22/17 19:51 01/22/17 19:51 01/22/17 19:51 01/22/17 19:51 General appearance: Present: no acute distress, other (altered mental status) Results - Labs CBC & Chem 7: 01/21/17 07:25 01/23/17 05:44 Labs: Laboratory Last Values WBC 10.7 K/mm3 (4.5-11.0) 01/21/17 07:25 RBC 4.64 M/mm3 (3.65-5.03) 01/21/17 07:25 Hgb 13.4 gm/dl (10.1-14.3) 01/21/17 07:25 Hct 41.6 % (30.3-42.9) 01/21/17 07:25 MCV 90 fl (79-97) 01/21/17 07:25 MCH 29 pg (28-32) 01/21/17 07:25 MCHC 32 % (30-34) 01/21/17 07:25 RDW 12.9 % (13.2-15.2) L 01/21/17 07:25 Plt Count 180 K/mm3 (140-440) 01/21/17 07:25 Lymph % (Auto) 17.7 % (13.4-35.0) 01/21/17 07:25 [place] % (Auto) 7.1 % (0.0-7.3) 01/21/17 07:25 Eos % (Auto) 0.7 % (0.0-4.3) 01/21/17 07:25 Baso % (Auto) 0.4 % (0.0-1.8) 01/21/17 07:25 Lymph # 1.9 K/mm3 (1.2-5.4) 01/21/17 07:25 [place] # 0.8 K/mm3 (0.0-0.8) 01/21/17 07:25 Eos # 0.1 K/mm3 (0.0-0.4) 01/21/17 07:25 Baso # 0.0 K/mm3 (0.0-0.1) 01/21/17 07:25 Seg Neutrophils % 74.1 % (40.0-70.0) H 01/21/17 07:25 Seg Neutrophils # 7.9 K/mm3 (1.8-7.7) H 01/21/17 07:25 Sodium 141 mmol/L (137-145) D 01/21/17 07:25 Potassium 3.2 mmol/L (3.6-5.0) L D 01/21/17 07:25 Chloride 100.9 mmol/L (98-107) 01/21/17 07:25 Carbon Dioxide 27 mmol/L (22-30) 01/21/17 07:25 Anion Gap 16 mmol/L 01/21/17 07:25 BUN 15 mg/dL (7-17) 01/21/17 07:25 Creatinine 0.6 mg/dL (0.7-1.2) L 01/21/17 07:25 Estimated GFR > 60 ml/min 01/21/17 07:25 BUN/Creatinine Ratio 25 % 01/21/17 07:25 Glucose 145 mg/dL (65-100) H 01/21/17 07:25 Calcium 7.7 mg/dL (8.4-10.2) L 01/21/17 07:25 Total Bilirubin 0.50 mg/dL (0.1-1.2) 01/20/17 00:18 AST 23 units/L (5-40) 01/20/17 00:18 ALT 15 units/L (7-56) 01/20/17 00:18 Alkaline Phosphatase 97 units/L (35-129) 01/20/17 00:18 Total Creatine Kinase 115 units/L (30-135) 01/21/17 07:25 Total Protein 8.0 g/dL (6.3-8.2) 01/20/17 00:18 Albumin 3.5 g/dL (3.9-5) L 01/20/17 00:18 Albumin/Globulin Ratio 0.8 % 01/20/17 00:18 Lipase 14 units/L (13-60) 01/20/17 00:18 Urine Color Yellow (Yellow) 01/20/17 02:54 Urine Turbidity Clear (Clear) 01/20/17 02:54 Urine pH 5.0 (5.0-7.0) 01/20/17 02:54 Ur Specific [place] 1.030 (1.003-1.030) 01/20/17 02:54 Urine Protein 30 mg/dl mg/dL (Negative) 01/20/17 02:54 Urine Glucose (UA) Neg mg/dL (Negative) 01/20/17 02:54 Urine Ketones 20 mg/dL (Negative) 01/20/17 02:54 Urine Blood Mod (Negative) 01/20/17 02:54 Urine Nitrite Neg (Negative) 01/20/17 02:54 Urine Bilirubin Neg (Negative) 01/20/17 02:54 Urine Urobilinogen < 2.0 mg/dL (<2.0) 01/20/17 02:54 Ur Leukocyte Esterase Neg (Negative) 01/20/17 02:54 Urine WBC (Auto) 1.0 /HPF (0.0-6.0) 01/20/17 02:54 Urine RBC (Auto) 5.0 /HPF (0.0-6.0) 01/20/17 02:54 U Epithel Cells (Auto) 1.0 /HPF (0-13.0) 01/20/17 02:54 Urine Bacteria (Auto) 1+ /HPF (Negative) 01/20/17 02:54 Urine Mucus 1+ /HPF 01/20/17 02:54
[2017-01-22] MEDS: DESYREL PO SCH (23:06)
[2017-01-23] MEDS: D5W 1,000 ML IV SCH ×2 (05:39→16:20)
[2017-01-23 06:54] LABS: BUN/Creatinine Ratio 13; Blood Urea Nitrogen 10 mg/dL (7-17); Calcium 8.4 mg/dL (8.4-10.2); Carbon Dioxide 35 mmol/L (22-30); Chloride 96.5 mmol/L (98-107); Glucose 125 mg/dL (65-100); Potassium 3.6 mmol/L (3.6-5.0); Sodium 141 mmol/L (137-145)
[2017-01-23 06:57] LABS: Anion Gap 13 mmol/L
[2017-01-23] MEDS: MIRALAX 3350 PO SCH (09:59)
[2017-01-23] MEDS: PROTONIX PO SCH (09:59)
[2017-01-23] MEDS: ARICEPT PO SCH (09:59)
[2017-01-23] MEDS: LOVENOX SUB-Q SCH (10:00)
[2017-01-23] MEDS: CALTRATE PLUS PO SCH ×2 (10:00→22:05)
[2017-01-23] MEDS: ZOLOFT PO SCH (10:00)
--- NOTE | 2017-01-23 14:59 | Gastroenterology Progress Note ---
Assessment and Plan GI: poor po intake per staff - awaiting nutrition input today - continue follow po intake and calorie count - possible EGD/PEG in am Subjective Date of service: 01/23/17 Interval history: per staff poor po intake today. Denies other GI complaints Objective - Constitutional Vitals: Temp Pulse Resp BP Pulse Ox 97.9 F 55 L 20 97/42 100 01/23/17 07:46 01/23/17 07:46 01/23/17 07:46 01/23/17 07:46 01/23/17 07:46 General appearance: no acute distress - Respiratory Respiratory: bilateral: CTA - Cardiovascular Rhythm: regular Heart Sounds: Present: S1 & S2 - Gastrointestinal General gastrointestinal: Present: soft, non-tender - Labs CBC & Chem 7: 01/21/17 07:25 01/23/17 05:44 Labs: Laboratory Results - last 24 hr 01/23/17 05:44 Sodium 141 Potassium 3.6 Chloride 96.5 L Carbon Dioxide 35 H D Anion Gap 13 BUN 10 Creatinine 0.8 Estimated GFR > 60 BUN/Creatinine Ratio 13 Glucose 125 H Calcium 8.4
--- NOTE | 2017-01-23 17:34 | Progress Note ---
Assessment and Plan Assessment and plan: 87 -year-old woman with schizophrenia, dementia, hypertension, history of SBO and GIB due to erosive gastritis brought to the hospital for abdominal pain, decreased intake, evaluation for PEG placement 1. Abdominal pain Unclear if she really has abdominal discomfort (due to her schizophrenia/ dementia with paranoid thoughts) CT abdomen/pelvis with no acute abnormality LFTs, lipase within normal limits Per nursing, tolerates by mouth, but has decreased intake GI consulted for possible PEG placement; requested nutrition consult for calorie count; discussing with family, possible plan for PEG tomorrow 2. Hypernatremia Secondary to dehydration Resolved with IV fluids 3. Dehydration Due to poor intake IV fluids Nursing encouraging by mouth intake 4. Leukocytosis Likely reactive, no infectious source identified Resolved 5. Mild protein caloric malnutrition Due to poor intake [place] Pens Assembler consulted for supplementation Considering PEG placement 6. Hypertension On clonidine patch and Coreg BP low this morning and slight bradycardic; decrease Coreg dose 7. Hyperlipidemia Continue statin 8. Paranoid schizophrenia Home medications, Seroquel/Zoloft/trazodone, restarted 9. Dementia On Aricept Supportive care 10. DVT prophylaxis Lovenox History Interval history: Continues to have decreased intake, no complaints Hospitalist Physical - Constitutional Vitals: Temp Pulse Resp BP Pulse Ox 98.3 F 63 20 129/47 99 01/23/17 17:12 01/23/17 17:12 01/23/17 17:12 01/23/17 17:12 01/23/17 17:12 General appearance: Present: no acute distress - EENT Eyes: Present: PERRL, EOM intact - Neck Neck: Present: supple, normal ROM. Absent: masses or JVD - Respiratory Respiratory effort: normal Respiratory: bilateral: CTA, negative: rhonchi, wheezing - Cardiovascular Rhythm: regular Heart Sounds: Present: S1 & S2. Absent: systolic murmur - Extremities Extremities: no ischemia - Abdominal General gastrointestinal: soft, non-tender, non-distended, normal bowel sounds - Psychiatric Psychiatric: no appropriate mood/affect, no intact judgment & insight, no memory intact - Neurologic Neurologic: moves all extremities Results - Labs CBC & Chem 7: 01/21/17 07:25 01/23/17 05:44 Labs: Laboratory Last Values WBC 10.7 K/mm3 (4.5-11.0) 01/21/17 07:25 RBC 4.64 M/mm3 (3.65-5.03) 01/21/17 07:25 Hgb 13.4 gm/dl (10.1-14.3) 01/21/17 07:25 Hct 41.6 % (30.3-42.9) 01/21/17 07:25 MCV 90 fl (79-97) 01/21/17 07:25 MCH 29 pg (28-32) 01/21/17 07:25 MCHC 32 % (30-34) 01/21/17 07:25 RDW 12.9 % (13.2-15.2) L 01/21/17 07:25 Plt Count 180 K/mm3 (140-440) 01/21/17 07:25 Lymph % (Auto) 17.7 % (13.4-35.0) 01/21/17 07:25 [place] % (Auto) 7.1 % (0.0-7.3) 01/21/17 07:25 Eos % (Auto) 0.7 % (0.0-4.3) 01/21/17 07:25 Baso % (Auto) 0.4 % (0.0-1.8) 01/21/17 07:25 Lymph # 1.9 K/mm3 (1.2-5.4) 01/21/17 07:25 [place] # 0.8 K/mm3 (0.0-0.8) 01/21/17 07:25 Eos # 0.1 K/mm3 (0.0-0.4) 01/21/17 07:25 Baso # 0.0 K/mm3 (0.0-0.1) 01/21/17 07:25 Seg Neutrophils % 74.1 % (40.0-70.0) H 01/21/17 07:25 Seg Neutrophils # 7.9 K/mm3 (1.8-7.7) H 01/21/17 07:25 Sodium 141 mmol/L (137-145) 01/23/17 05:44 Potassium 3.6 mmol/L (3.6-5.0) 01/23/17 05:44 Chloride 96.5 mmol/L (98-107) L 01/23/17 05:44 Carbon Dioxide 35 mmol/L (22-30) H D 01/23/17 05:44 Anion Gap 13 mmol/L 01/23/17 05:44 BUN 10 mg/dL (7-17) 01/23/17 05:44 Creatinine 0.8 mg/dL (0.7-1.2) 01/23/17 05:44 Estimated GFR > 60 ml/min 01/23/17 05:44 BUN/Creatinine Ratio 13 % 01/23/17 05:44 Glucose 125 mg/dL (65-100) H 01/23/17 05:44 Calcium 8.4 mg/dL (8.4-10.2) 01/23/17 05:44 Total Bilirubin 0.50 mg/dL (0.1-1.2) 01/20/17 00:18 AST 23 units/L (5-40) 01/20/17 00:18 ALT 15 units/L (7-56) 01/20/17 00:18 Alkaline Phosphatase 97 units/L (35-129) 01/20/17 00:18 Total Creatine Kinase 115 units/L (30-135) 01/21/17 07:25 Total Protein 8.0 g/dL (6.3-8.2) 01/20/17 00:18 Albumin 3.5 g/dL (3.9-5) L 01/20/17 00:18 Albumin/Globulin Ratio 0.8 % 01/20/17 00:18 Lipase 14 units/L (13-60) 01/20/17 00:18 Urine Color Yellow (Yellow) 01/20/17 02:54 Urine Turbidity Clear (Clear) 01/20/17 02:54 Urine pH 5.0 (5.0-7.0) 01/20/17 02:54 Ur Specific [place] 1.030 (1.003-1.030) 01/20/17 02:54 Urine Protein 30 mg/dl mg/dL (Negative) 01/20/17 02:54 Urine Glucose (UA) Neg mg/dL (Negative) 01/20/17 02:54 Urine Ketones 20 mg/dL (Negative) 01/20/17 02:54 Urine Blood Mod (Negative) 01/20/17 02:54 Urine Nitrite Neg (Negative) 01/20/17 02:54 Urine Bilirubin Neg (Negative) 01/20/17 02:54 Urine Urobilinogen < 2.0 mg/dL (<2.0) 01/20/17 02:54 Ur Leukocyte Esterase Neg (Negative) 01/20/17 02:54 Urine WBC (Auto) 1.0 /HPF (0.0-6.0) 01/20/17 02:54 Urine RBC (Auto) 5.0 /HPF (0.0-6.0) 01/20/17 02:54 U Epithel Cells (Auto) 1.0 /HPF (0-13.0) 01/20/17 02:54 Urine Bacteria (Auto) 1+ /HPF (Negative) 01/20/17 02:54 Urine Mucus 1+ /HPF 01/20/17 02:54
[2017-01-23] MEDS ORDERED: COREG PO SCH (22:00)
[2017-01-23] MEDS: DESYREL PO SCH (22:06)
[2017-01-23] MEDS: COREG PO SCH (22:18)
[2017-01-24] MEDS: D5W 1,000 ML IV SCH ×3 (01:15→22:01)
[2017-01-24] MEDS ORDERED: ePHEDrine SULFATE ONE (09:00)
[2017-01-24] MEDS: COREG PO SCH ×2 (11:23→22:02)
[2017-01-24] MEDS: CALTRATE PLUS PO SCH ×2 (11:23→22:00)
[2017-01-24] MEDS: ARICEPT PO SCH (11:23)
[2017-01-24] MEDS: LOVENOX SUB-Q SCH (11:23)
[2017-01-24] MEDS: ZOLOFT PO SCH (11:24)
[2017-01-24] MEDS: MIRALAX 3350 PO SCH (11:24)
[2017-01-24] MEDS: PROTONIX PO SCH (11:24)
--- NOTE | 2017-01-24 13:50 | Event Note ---
Date: 01/24/17 Tried to call family (pt's sister Donato Rodrigues) to discuss need for EGD/PEG placement and get consent. Number given is to an assisted living facility where her sister resides. Message and contact number left for family to contact me. Waiting for return call.
--- NOTE | 2017-01-24 14:16 | Progress Note ---
Assessment and Plan Assessment and plan: 87 -year-old woman with schizophrenia, dementia, hypertension, history of SBO and GIB due to erosive gastritis brought to the hospital for abdominal pain, decreased intake, evaluation for PEG placement 1. Abdominal pain Unclear if she really has abdominal discomfort (due to her schizophrenia/ dementia with paranoid thoughts) CT abdomen/pelvis with no acute abnormality LFTs, lipase within normal limits Per nursing, tolerates by mouth, but has decreased intake GI consulted for possible PEG placement; requested nutrition consult for calorie count; discussing with family, plan for PEG today 2. Hypernatremia Secondary to dehydration Resolved with IV fluids 3. Dehydration Due to poor intake IV fluids Nursing encouraging by mouth intake 4. Leukocytosis Likely reactive, no infectious source identified Resolved 5. Mild protein caloric malnutrition Due to poor intake Oil Heat Technician consulted for supplementation Considering PEG placement 6. Hypertension On clonidine patch and Coreg As BP low and slight bradycardic,Coreg dose was decreased 7. Hyperlipidemia Continue statin 8. Paranoid schizophrenia Home medications, Seroquel/Zoloft/trazodone, restarted 9. Dementia On Aricept Supportive care 10. DVT prophylaxis Lovenox History Interval history: Continues to have decreased intake, no complaints Scheduled for PEG placement today Hospitalist Physical - Constitutional Vitals: Temp Pulse Resp BP Pulse Ox 99.3 F 78 28 H 131/62 99 01/24/17 07:21 01/24/17 07:21 01/24/17 07:21 01/24/17 07:21 01/24/17 11:08 General appearance: Present: no acute distress, obese - EENT Eyes: Present: PERRL, EOM intact - Neck Neck: Present: supple, normal ROM. Absent: masses or JVD - Respiratory Respiratory effort: normal Respiratory: bilateral: diminished, negative: rhonchi, wheezing - Cardiovascular Rhythm: regular Heart Sounds: Present: S1 & S2. Absent: systolic murmur - Extremities Extremities: no ischemia - Abdominal General gastrointestinal: soft, non-tender, non-distended, normal bowel sounds - Psychiatric Psychiatric: no intact judgment & insight, no memory intact - Neurologic Neurologic: CNII-XII intact, moves all extremities Results - Labs CBC & Chem 7: 01/21/17 07:25 01/23/17 05:44 Labs: Laboratory Last Values WBC 10.7 K/mm3 (4.5-11.0) 01/21/17 07:25 RBC 4.64 M/mm3 (3.65-5.03) 01/21/17 07:25 Hgb 13.4 gm/dl (10.1-14.3) 01/21/17 07:25 Hct 41.6 % (30.3-42.9) 01/21/17 07:25 MCV 90 fl (79-97) 01/21/17 07:25 MCH 29 pg (28-32) 01/21/17 07:25 MCHC 32 % (30-34) 01/21/17 07:25 RDW 12.9 % (13.2-15.2) L 01/21/17 07:25 Plt Count 180 K/mm3 (140-440) 01/21/17 07:25 Lymph % (Auto) 17.7 % (13.4-35.0) 01/21/17 07:25 [place] % (Auto) 7.1 % (0.0-7.3) 01/21/17 07:25 Eos % (Auto) 0.7 % (0.0-4.3) 01/21/17 07:25 Baso % (Auto) 0.4 % (0.0-1.8) 01/21/17 07:25 Lymph # 1.9 K/mm3 (1.2-5.4) 01/21/17 07:25 [place] # 0.8 K/mm3 (0.0-0.8) 01/21/17 07:25 Eos # 0.1 K/mm3 (0.0-0.4) 01/21/17 07:25 Baso # 0.0 K/mm3 (0.0-0.1) 01/21/17 07:25 Seg Neutrophils % 74.1 % (40.0-70.0) H 01/21/17 07:25 Seg Neutrophils # 7.9 K/mm3 (1.8-7.7) H 01/21/17 07:25 Sodium 141 mmol/L (137-145) 01/23/17 05:44 Potassium 3.6 mmol/L (3.6-5.0) 01/23/17 05:44 Chloride 96.5 mmol/L (98-107) L 01/23/17 05:44 Carbon Dioxide 35 mmol/L (22-30) H D 01/23/17 05:44 Anion Gap 13 mmol/L 01/23/17 05:44 BUN 10 mg/dL (7-17) 01/23/17 05:44 Creatinine 0.8 mg/dL (0.7-1.2) 01/23/17 05:44 Estimated GFR > 60 ml/min 01/23/17 05:44 BUN/Creatinine Ratio 13 % 01/23/17 05:44 Glucose 125 mg/dL (65-100) H 01/23/17 05:44 Calcium 8.4 mg/dL (8.4-10.2) 01/23/17 05:44 Total Bilirubin 0.50 mg/dL (0.1-1.2) 01/20/17 00:18 AST 23 units/L (5-40) 01/20/17 00:18 ALT 15 units/L (7-56) 01/20/17 00:18 Alkaline Phosphatase 97 units/L (35-129) 01/20/17 00:18 Total Creatine Kinase 115 units/L (30-135) 01/21/17 07:25 Total Protein 8.0 g/dL (6.3-8.2) 01/20/17 00:18 Albumin 3.5 g/dL (3.9-5) L 01/20/17 00:18 Albumin/Globulin Ratio 0.8 % 01/20/17 00:18 Lipase 14 units/L (13-60) 01/20/17 00:18 Urine Color Yellow (Yellow) 01/20/17 02:54 Urine Turbidity Clear (Clear) 01/20/17 02:54 Urine pH 5.0 (5.0-7.0) 01/20/17 02:54 Ur Specific [place] 1.030 (1.003-1.030) 01/20/17 02:54 Urine Protein 30 mg/dl mg/dL (Negative) 01/20/17 02:54 Urine Glucose (UA) Neg mg/dL (Negative) 01/20/17 02:54 Urine Ketones 20 mg/dL (Negative) 01/20/17 02:54 Urine Blood Mod (Negative) 01/20/17 02:54 Urine Nitrite Neg (Negative) 01/20/17 02:54 Urine Bilirubin Neg (Negative) 01/20/17 02:54 Urine Urobilinogen < 2.0 mg/dL (<2.0) 01/20/17 02:54 Ur Leukocyte Esterase Neg (Negative) 01/20/17 02:54 Urine WBC (Auto) 1.0 /HPF (0.0-6.0) 01/20/17 02:54 Urine RBC (Auto) 5.0 /HPF (0.0-6.0) 01/20/17 02:54 U Epithel Cells (Auto) 1.0 /HPF (0-13.0) 01/20/17 02:54 Urine Bacteria (Auto) 1+ /HPF (Negative) 01/20/17 02:54 Urine Mucus 1+ /HPF 01/20/17 02:54
--- NOTE | 2017-01-24 15:40 | Event Note ---
Date: 01/24/17 Spoke with pt's sister (guardian) Donato Rodrigues ([phone]). Discussed the need for pt to have an EGD with PEG tube placement to include nature of the procedure, details of the technique, benefits, purpose, and risks including perforation, bleeding, infection, and independent risks of anesthesia. Understanding was voiced and she wishes for pt to proceed with PEG place.
[2017-01-24] MEDS ORDERED: ANCEF/STERILE WATER 2 GM/20 ML 2 GM/20 ML SYRINGE IV NR (16:00)
[2017-01-24] MEDS ORDERED: ANCEF/STERILE WATER 2 GM/20 ML 2 GM/20 ML SYRINGE IV ONE (16:24)
[2017-01-24] MEDS: NACL 0.9% 1000 ML 1,000 ML IV SCH ×2 (17:14→22:18)
--- NOTE | 2017-01-24 17:24 | Anesthesia Day of Surgery ---
Anesthesia Day of Surgery - Day of Surgery Patient Examined: Yes Patient H&P Reviewed: Yes Patient is NPO: Yes
--- NOTE | 2017-01-24 17:24 | Anesthesia Consultation ---
Anesthesia Consult and Med Hx Date of service: 01/24/17 - Pulmonary Exam CTA: Yes - Cardiac Exam Cardiac Exam: RRR - Pre-Operative Health Status ASA Pre-Surgery Classification: ASA4 Proposed Anesthetic Plan: MAC - Pulmonary Hx Smoking: Yes (quit in 1970s) Hx Asthma: No COPD: Yes Hx Pneumonia: No - Cardiovascular System Hx Hypertension: Yes Hx Angina: Yes Hx Pacemaker: No Hx Internal Defibrillator: No - Central Nervous System CVA: Yes Hx Psychiatric Problems: Yes (schizophrenia, demntia) - Endocrine Hx End Stage Renal Disease: No - Hematic Hx Anemia: Yes - Other Systems Hx Alcohol Use: No Hx Substance Use: No Hx Cancer: No Hx Obesity: Yes - Additional Comments Anesthesia Medical History Comments: unable to do airway exam
[2017-01-24] MEDS ORDERED: SUBLIMAZE ONE (17:25)
[2017-01-24] MEDS ORDERED: DIPRIVAN 10 MG/ML IV ONE ×2 (17:25)
[2017-01-24] MEDS ORDERED: WATER FOR IRRIG STERILE IR ONE (17:26)
--- NOTE | 2017-01-24 17:30 | Post Operative Note ---
Pre-op diagnosis: dysphagia, abdominal pain Post-op diagnosis: same Findings: EGD: hiatal hernia - cortez 60 F dilation - gastritis (bx's) -negative other colonoscopy: diverticulosis - internal hemorrhoids - negative other Procedure: EGD/colonoscopy Anesthesia: MAC Surgeon: MEERA FINK Estimated blood loss: none Pathology: list Specimen disposition: to lab Condition: stable Disposition: floor
[2017-01-24] MEDS ORDERED: GARAMYCIN/NS 80 MG/100 ML 100 ML IV ONE ×2 (17:40→18:35)
[2017-01-24] MEDS ORDERED: VERSED ONE (17:42)
--- NOTE | 2017-01-24 17:53 | Post Operative Note ---
Pre-op diagnosis: weight loss, dysphagia Post-op diagnosis: same Findings: EGD: hiatal hernia - mild gastritis 20F pull peg placed, bumper at 4 cm Procedure: EGD/PEG Anesthesia: MAC Surgeon: MEERA FINK Estimated blood loss: none Pathology: none Specimen disposition: to lab Condition: stable Disposition: floor
[2017-01-24] MEDS ORDERED: LEVAQUIN 500MG/100ML 500 MG/100 ML BAG IV NR (19:00)
--- NOTE | 2017-01-24 20:00 | Operative Report ---
[facility]# [id number] GABRIELLE/ASHELY JEROME
--- NOTE | 2017-01-24 20:25 | Operative Report ---
PROCEDURE: EGD with PEG tube placement. INDICATION: 1. Weight loss. 2. Nutritional support. 3. Dysphagia. MEDICATIONS: Propofol per FILES SUPERVISOR. COMPLICATIONS: None. DESCRIPTION OF PROCEDURE: The patient brought to the procedure suite. The patient had the procedure discussed with family at length. All risks, complications, and benefits were discussed, after which verbal consent was gotten for the procedure to be performed. The patient placed in the supine position. Mouth block was placed in the patient's oral cavity. After adequate sedation medication as above, endoscope was introduced into the mouth and brought to the level of the second portion of duodenum. Retroflexion view performed. The patient's vital signs remained stable throughout the procedure. FINDINGS: There was noted to be a medium hiatal hernia at GE junction, which was 38 cm from the gums. Mild gastritis noted in the stomach. Remaining stomach and duodenum otherwise appeared benign. After this, especially using standard technique and transillumination, area for adequate placement of PEG was found. A 20-Lao pull PEG was then placed with bumper noted to be at 4 cm. Post-procedure, the patient was satisfactory. The patient tolerated the procedure well. No complications during the procedure. IMPRESSION: 1. Hiatal hernia. 2. Mild gastritis. 3. Otherwise, normal EGD. 4. PEG tube placement without obvious complications. RECOMMENDATIONS: 1. Standard PEG tube orders, see chart. 2. Watch for signs of bleeding or infection. 3. We will follow up in a.m. JOB# [id number] [facility]
[2017-01-24] MEDS: MORPHINE IV PRN (21:59)
[2017-01-24] MEDS: DESYREL PO SCH (22:00)
[2017-01-25] MEDS: CALTRATE PLUS PO SCH ×2 (09:14→22:25)
[2017-01-25] MEDS: PROTONIX PO SCH (09:14)
[2017-01-25] MEDS: LOVENOX SUB-Q SCH (09:14)
[2017-01-25] MEDS: MIRALAX 3350 PO SCH (09:14)
[2017-01-25] MEDS: ARICEPT PO SCH (09:15)
[2017-01-25] MEDS: ZOLOFT PO SCH (09:15)
[2017-01-25] MEDS: COREG PO SCH ×2 (09:17→22:29)
--- NOTE | 2017-01-25 09:39 | Gastroenterology Progress Note ---
Assessment and Plan 1.poor po intake -S/P EGD with PEG tube placement yesterday -PEG site w/o redness, swelling, or drainage -bumper off loaded to prevent skin breakdown -may use split gauze dressing PRN -continue GI soft diet -will defer to implementation architect for supplementation need -no further GI recommendations at this time -will sign off Subjective Date of service: 01/25/17 Principal diagnosis: poor po intake Interval history: Patient resting in bed. No acute distress. PEG site without redness, swelling, or drainage. Objective - Constitutional Vitals: Temp Pulse Resp BP Pulse Ox 99.2 F 65 24 128/64 96 01/25/17 08:00 01/25/17 09:17 01/25/17 08:00 01/25/17 09:17 01/25/17 08:41 General appearance: no acute distress - Respiratory Respiratory: bilateral: diminished - Cardiovascular Rhythm: regular Heart Sounds: Present: S1 & S2 - Gastrointestinal General gastrointestinal: Present: soft, non-tender, non-distended, normal bowel sounds, other (PEG intact, site w/o signs of infection) - Integumentary Integumentary: Present: warm, dry - Labs CBC & Chem 7: 01/21/17 07:25 01/23/17 05:44
--- NOTE | 2017-01-25 10:37 | Discharge Summary ---
Providers - Providers Date of Admission: 01/20/17 08:49 Date of discharge: 01/25/17 Attending physician: ISSAC DRUMMNOD 01/20/17 13:09 Consult to Physician [CONS] Routine Consulting Provider: ANN TORRES Reason For Exam: Peg-placement and abdominal pain. Place consult to:: yes Notified:: yes Phone number called:: yes 01/21/17 12:51 Consult to Dietitian/Nutrition [CONS] Routine Physician Instructions: Reason For Exam: Reason for Consult: calorie count Primary care physician: CRINKLING MACHINE OPERATOR Hospitalization Reason for admission: decreased intake Condition: Stable Pertinent studies: CT abdomen/pelvis Chest x-ray Procedures: PEG placement Hospital course: Patient is a 87 years old female with schizophrenia, dementia, hypertension, history of SBO and GIB due to erosive gastritis brought to the hospital for abdominal pain, decreased intake, evaluation for PEG placement. Unclear if she really had abdominal discomfort due to her schizophrenia/dementia with paranoid thoughts. CT abdomen/pelvis with no acute abnormality, also, pertinent labs with no abnormalities. She received IV fluids for dehydration with subsequent hypernatremia which quickly resolved. Nursing staff documented decreased intake and tile molder was consulted for calorie count. GI followed and based on findings decided to proceed with PEG placement; underwent procedure successfully , no complications. She will be discharged on tube feeding back to assisted living facility. Discharge diagnoses: 1. Questionable abdominal pain 2. Dysphagia/Decreased intake 3. Mild protein caloric malnutrition 4. Hypernatremia 5. Dehydration 6. Leukocytosis 7. Hypertension 8. Hyperlipidemia 9. Paranoid schizophrenia 10. Dementia Disposition: [id number]/[place]-06 HOME UNDER HOME [facility] Time spent for discharge: 35 min Core Measure Documentation - Palliative Care Palliative Care/ Comfort Measures: Not Applicable - Core Measures Any of the following diagnoses?: none Exam - Physical Exam Narrative exam: Seen and examined: - Constitutional Vitals: Temp Pulse Resp BP Pulse Ox 99.2 F 65 24 128/64 96 01/25/17 08:00 01/25/17 09:17 01/25/17 08:00 01/25/17 09:17 01/25/17 08:41 General appearance: Present: no acute distress, obese - EENT Eyes: Present: PERRL, EOM intact - Respiratory Respiratory effort: normal Respiratory: bilateral: CTA, negative: rhonchi, wheezing - Cardiovascular Rhythm: regular Heart Sounds: Present: S1 & S2. Absent: systolic murmur - Extremities Extremities: no ischemia - Abdominal General gastrointestinal: Present: soft, non-tender, non-distended, normal bowel sounds, other (PEG, no erythema at incision site) - Psychiatric Psychiatric: no intact judgment & insight, no memory intact - Neurologic Neurologic: moves all extremities Plan Activity: advance as tolerated, fall precautions Diet: other (tube feeding per dietitian instruction) Follow up with: PRIMARY CARE, [Primary Care Provider] - 3-5 Days Prescriptions: Carvedilol [Coreg] 3.125 mg PO BID #60 tablet
[2017-01-25] MEDS ORDERED: SODIUM BICARBONATE FEEDTUBE PRN (11:58)
[2017-01-25] MEDS ORDERED: SIMPLE SYRUP FEEDTUBE PRN ×2 (11:58)
[2017-01-25] MEDS ORDERED: PANCREAZE DR 10,500 UNIT FEEDTUBE PRN (11:58)
--- NOTE | 2017-01-25 13:01 | Operative Report ---
[facility]# [id number] GABRIELLE/ASHELY JEROME
[2017-01-25] MEDS ORDERED: D50W (25GM) Syringe IV PRN (18:33)
[2017-01-25] MEDS: DESYREL PO SCH (22:24)
[2017-01-26] MEDS: D5W 1,000 ML IV SCH (01:45)
[2017-01-26] MEDS: LOVENOX SUB-Q SCH (10:38)
[2017-01-26] MEDS: TYLENOL PO PRN (10:38)
[2017-01-26] MEDS: ARICEPT PO SCH (10:39)
[2017-01-26] MEDS: CALTRATE PLUS PO SCH ×2 (10:39→21:12)
[2017-01-26] MEDS: PROTONIX PO SCH (10:39)
[2017-01-26] MEDS: ZOLOFT PO SCH (10:39)
[2017-01-26] MEDS: COREG PO SCH ×2 (10:39→21:25)
[2017-01-26] MEDS: MIRALAX 3350 PO SCH (10:41)
--- NOTE | 2017-01-26 19:40 | Progress Note ---
Assessment and Plan Assessment and plan: 87 -year-old woman with schizophrenia, dementia, hypertension, history of SBO and GIB due to erosive gastritis brought to the hospital for abdominal pain, decreased intake, evaluation for PEG placement 1. Abdominal pain Unclear if she really has abdominal discomfort (due to her schizophrenia/ dementia with paranoid thoughts) CT abdomen/pelvis with no acute abnormality LFTs, lipase within normal limits Per nursing, tolerates by mouth, but has decreased intake GI consulted and requested nutrition consult for calorie count; then discussed with family and decided to proceed with PEG placement 01/24 2. Hypernatremia Secondary to dehydration Resolved with IV fluids 3. Dehydration Due to poor intake IV fluids Nursing encouraging by mouth intake 4. Leukocytosis Likely reactive, no infectious source identified Resolved 5. Mild protein caloric malnutrition Due to poor intake Shipyard Painter Apprentice consulted for supplementation Considering PEG placement 6. Hypertension On clonidine patch and Coreg As BP low and slight bradycardic,Coreg dose was decreased 7. Hyperlipidemia Continue statin 8. Paranoid schizophrenia Home medications, Seroquel/Zoloft/trazodone, restarted 9. Dementia On Aricept Supportive care 10. DVT prophylaxis Lovenox 11. Dispo Unable to return to assisting living facility due to PEG study manager working on detention placement; awaiting insurance preauthorization History Interval history: Status post PEG placement and discharged yesterday, but unable to leave as assisting living facility unable to care for her due to PEG Discussed with sister, her POA, about options study manager working on detention placement No new issues or acute events overnight Hospitalist Physical - Constitutional Vitals: Temp Pulse Resp BP Pulse Ox 98.0 F 54 L 20 120/46 99 01/26/17 15:01 01/26/17 15:01 01/26/17 15:01 01/26/17 15:01 01/26/17 15:01 General appearance: Present: no acute distress, obese - EENT Eyes: Present: PERRL, EOM intact - Neck Neck: Present: supple, normal ROM. Absent: masses or JVD - Respiratory Respiratory effort: normal Respiratory: bilateral: CTA, negative: rhonchi, wheezing - Cardiovascular Rhythm: regular Heart Sounds: Present: S1 & S2. Absent: systolic murmur - Extremities Extremities: no ischemia - Abdominal General gastrointestinal: soft, non-tender, non-distended, normal bowel sounds, other (PEG) - Psychiatric Psychiatric: no appropriate mood/affect, no intact judgment & insight, no memory intact - Neurologic Neurologic: moves all extremities Results - Labs CBC & Chem 7: 01/21/17 07:25 01/23/17 05:44 Labs: Laboratory Last Values WBC 10.7 K/mm3 (4.5-11.0) 01/21/17 07:25 RBC 4.64 M/mm3 (3.65-5.03) 01/21/17 07:25 Hgb 13.4 gm/dl (10.1-14.3) 01/21/17 07:25 Hct 41.6 % (30.3-42.9) 01/21/17 07:25 MCV 90 fl (79-97) 01/21/17 07:25 MCH 29 pg (28-32) 01/21/17 07:25 MCHC 32 % (30-34) 01/21/17 07:25 RDW 12.9 % (13.2-15.2) L 01/21/17 07:25 Plt Count 180 K/mm3 (140-440) 01/21/17 07:25 Lymph % (Auto) 17.7 % (13.4-35.0) 01/21/17 07:25 [place] % (Auto) 7.1 % (0.0-7.3) 01/21/17 07:25 Eos % (Auto) 0.7 % (0.0-4.3) 01/21/17 07:25 Baso % (Auto) 0.4 % (0.0-1.8) 01/21/17 07:25 Lymph # 1.9 K/mm3 (1.2-5.4) 01/21/17 07:25 [place] # 0.8 K/mm3 (0.0-0.8) 01/21/17 07:25 Eos # 0.1 K/mm3 (0.0-0.4) 01/21/17 07:25 Baso # 0.0 K/mm3 (0.0-0.1) 01/21/17 07:25 Seg Neutrophils % 74.1 % (40.0-70.0) H 01/21/17 07:25 Seg Neutrophils # 7.9 K/mm3 (1.8-7.7) H 01/21/17 07:25 Sodium 141 mmol/L (137-145) 01/23/17 05:44 Potassium 3.6 mmol/L (3.6-5.0) 01/23/17 05:44 Chloride 96.5 mmol/L (98-107) L 01/23/17 05:44 Carbon Dioxide 35 mmol/L (22-30) H D 01/23/17 05:44 Anion Gap 13 mmol/L 01/23/17 05:44 BUN 10 mg/dL (7-17) 01/23/17 05:44 Creatinine 0.8 mg/dL (0.7-1.2) 01/23/17 05:44 Estimated GFR > 60 ml/min 01/23/17 05:44 BUN/Creatinine Ratio 13 % 01/23/17 05:44 Glucose 125 mg/dL (65-100) H 01/23/17 05:44 POC Glucose 126 (70-105) H 01/26/17 16:22 Calcium 8.4 mg/dL (8.4-10.2) 01/23/17 05:44 Total Bilirubin 0.50 mg/dL (0.1-1.2) 01/20/17 00:18 AST 23 units/L (5-40) 01/20/17 00:18 ALT 15 units/L (7-56) 01/20/17 00:18 Alkaline Phosphatase 97 units/L (35-129) 01/20/17 00:18 Total Creatine Kinase 115 units/L (30-135) 01/21/17 07:25 Total Protein 8.0 g/dL (6.3-8.2) 01/20/17 00:18 Albumin 3.5 g/dL (3.9-5) L 01/20/17 00:18 Albumin/Globulin Ratio 0.8 % 01/20/17 00:18 Lipase 14 units/L (13-60) 01/20/17 00:18 Urine Color Yellow (Yellow) 01/20/17 02:54 Urine Turbidity Clear (Clear) 01/20/17 02:54 Urine pH 5.0 (5.0-7.0) 01/20/17 02:54 Ur Specific [place] 1.030 (1.003-1.030) 01/20/17 02:54 Urine Protein 30 mg/dl mg/dL (Negative) 01/20/17 02:54 Urine Glucose (UA) Neg mg/dL (Negative) 01/20/17 02:54 Urine Ketones 20 mg/dL (Negative) 01/20/17 02:54 Urine Blood Mod (Negative) 01/20/17 02:54 Urine Nitrite Neg (Negative) 01/20/17 02:54 Urine Bilirubin Neg (Negative) 01/20/17 02:54 Urine Urobilinogen < 2.0 mg/dL (<2.0) 01/20/17 02:54 Ur Leukocyte Esterase Neg (Negative) 01/20/17 02:54 Urine WBC (Auto) 1.0 /HPF (0.0-6.0) 01/20/17 02:54 Urine RBC (Auto) 5.0 /HPF (0.0-6.0) 01/20/17 02:54 U Epithel Cells (Auto) 1.0 /HPF (0-13.0) 01/20/17 02:54 Urine Bacteria (Auto) 1+ /HPF (Negative) 01/20/17 02:54 Urine Mucus 1+ /HPF 01/20/17 02:54
[2017-01-26] MEDS: DESYREL PO SCH (21:14)
[2017-01-27] MEDS: ARICEPT PO SCH (09:28)
[2017-01-27] MEDS: COREG PO SCH ×2 (09:28→23:58)
[2017-01-27] MEDS: CALTRATE PLUS PO SCH ×2 (09:28→23:57)
[2017-01-27] MEDS: MIRALAX 3350 PO SCH (09:29)
[2017-01-27] MEDS: ZOLOFT PO SCH (09:29)
[2017-01-27] MEDS: LOVENOX SUB-Q SCH (09:29)
[2017-01-27] MEDS: PROTONIX PO SCH (09:29)
[2017-01-27] MEDS: TYLENOL PO PRN (09:32)
--- NOTE | 2017-01-27 09:55 | Progress Note ---
Assessment and Plan Assessment and plan: 87 -year-old woman with schizophrenia, dementia, hypertension, history of SBO and GIB due to erosive gastritis brought to the hospital for abdominal pain, decreased intake, evaluation for PEG placement 1. Low grade fever No symptoms/signs of infection Obtain CBC, BMP, UA Check PEG site 2. Abdominal pain Unclear if she really has abdominal discomfort (due to her schizophrenia/ dementia with paranoid thoughts) CT abdomen/pelvis with no acute abnormality LFTs, lipase within normal limits Per nursing, tolerates by mouth, but has decreased intake GI consulted and requested nutrition consult for calorie count; then discussed with family and decided to proceed with PEG placement 01/24 3. Hypernatremia Secondary to dehydration Resolved with IV fluids 4. Dehydration Due to poor intake IV fluids Nursing encouraging by mouth intake 5. Leukocytosis Likely reactive, no infectious source identified Resolved 6. Mild protein caloric malnutrition Due to poor intake Soap Boiler consulted for supplementation Considering PEG placement 7. Hypertension On clonidine patch and Coreg As BP low and slight bradycardic,Coreg dose was decreased 8. Hyperlipidemia Continue statin 9. Paranoid schizophrenia Home medications, Seroquel/Zoloft/trazodone, restarted 10. Dementia On Aricept Supportive care 11. DVT prophylaxis Lovenox 12. Dispo Unable to return to assisting living facility due to PEG household manager working on [facility] placement; awaiting insurance preauthorization History Interval history: low grade fever this morning; no complaints Hospitalist Physical - Constitutional Vitals: Temp Pulse Resp BP Pulse Ox 100.5 F H 61 18 137/46 96 01/27/17 08:05 01/27/17 08:05 01/27/17 08:05 01/27/17 08:05 01/27/17 08:05 General appearance: Present: no acute distress, obese - EENT Eyes: Present: PERRL, EOM intact - Neck Neck: Present: supple, normal ROM. Absent: masses or JVD - Respiratory Respiratory effort: normal Respiratory: bilateral: CTA, negative: rhonchi, wheezing - Cardiovascular Rhythm: regular Heart Sounds: Present: S1 & S2. Absent: systolic murmur - Extremities Extremities: no ischemia - Abdominal General gastrointestinal: soft, non-tender, non-distended, normal bowel sounds - Psychiatric Psychiatric: no appropriate mood/affect, no intact judgment & insight, no memory intact - Neurologic Neurologic: moves all extremities Results - Labs CBC & Chem 7: 01/21/17 07:25 01/23/17 05:44 Labs: Laboratory Last Values WBC 10.7 K/mm3 (4.5-11.0) 01/21/17 07:25 RBC 4.64 M/mm3 (3.65-5.03) 01/21/17 07:25 Hgb 13.4 gm/dl (10.1-14.3) 01/21/17 07:25 Hct 41.6 % (30.3-42.9) 01/21/17 07:25 MCV 90 fl (79-97) 01/21/17 07:25 MCH 29 pg (28-32) 01/21/17 07:25 MCHC 32 % (30-34) 01/21/17 07:25 RDW 12.9 % (13.2-15.2) L 01/21/17 07:25 Plt Count 180 K/mm3 (140-440) 01/21/17 07:25 Lymph % (Auto) 17.7 % (13.4-35.0) 01/21/17 07:25 [place] % (Auto) 7.1 % (0.0-7.3) 01/21/17 07:25 Eos % (Auto) 0.7 % (0.0-4.3) 01/21/17 07:25 Baso % (Auto) 0.4 % (0.0-1.8) 01/21/17 07:25 Lymph # 1.9 K/mm3 (1.2-5.4) 01/21/17 07:25 [place] # 0.8 K/mm3 (0.0-0.8) 01/21/17 07:25 Eos # 0.1 K/mm3 (0.0-0.4) 01/21/17 07:25 Baso # 0.0 K/mm3 (0.0-0.1) 01/21/17 07:25 Seg Neutrophils % 74.1 % (40.0-70.0) H 01/21/17 07:25 Seg Neutrophils # 7.9 K/mm3 (1.8-7.7) H 01/21/17 07:25 Sodium 141 mmol/L (137-145) 01/23/17 05:44 Potassium 3.6 mmol/L (3.6-5.0) 01/23/17 05:44 Chloride 96.5 mmol/L (98-107) L 01/23/17 05:44 Carbon Dioxide 35 mmol/L (22-30) H D 01/23/17 05:44 Anion Gap 13 mmol/L 01/23/17 05:44 BUN 10 mg/dL (7-17) 01/23/17 05:44 Creatinine 0.8 mg/dL (0.7-1.2) 01/23/17 05:44 Estimated GFR > 60 ml/min 01/23/17 05:44 BUN/Creatinine Ratio 13 % 01/23/17 05:44 Glucose 125 mg/dL (65-100) H 01/23/17 05:44 POC Glucose 143 (70-105) H 01/27/17 06:25 Calcium 8.4 mg/dL (8.4-10.2) 01/23/17 05:44 Total Bilirubin 0.50 mg/dL (0.1-1.2) 01/20/17 00:18 AST 23 units/L (5-40) 01/20/17 00:18 ALT 15 units/L (7-56) 01/20/17 00:18 Alkaline Phosphatase 97 units/L (35-129) 01/20/17 00:18 Total Creatine Kinase 115 units/L (30-135) 01/21/17 07:25 Total Protein 8.0 g/dL (6.3-8.2) 01/20/17 00:18 Albumin 3.5 g/dL (3.9-5) L 01/20/17 00:18 Albumin/Globulin Ratio 0.8 % 01/20/17 00:18 Lipase 14 units/L (13-60) 01/20/17 00:18 Urine Color Yellow (Yellow) 01/20/17 02:54 Urine Turbidity Clear (Clear) 01/20/17 02:54 Urine pH 5.0 (5.0-7.0) 01/20/17 02:54 Ur Specific [place] 1.030 (1.003-1.030) 01/20/17 02:54 Urine Protein 30 mg/dl mg/dL (Negative) 01/20/17 02:54 Urine Glucose (UA) Neg mg/dL (Negative) 01/20/17 02:54 Urine Ketones 20 mg/dL (Negative) 01/20/17 02:54 Urine Blood Mod (Negative) 01/20/17 02:54 Urine Nitrite Neg (Negative) 01/20/17 02:54 Urine Bilirubin Neg (Negative) 01/20/17 02:54 Urine Urobilinogen < 2.0 mg/dL (<2.0) 01/20/17 02:54 Ur Leukocyte Esterase Neg (Negative) 01/20/17 02:54 Urine WBC (Auto) 1.0 /HPF (0.0-6.0) 01/20/17 02:54 Urine RBC (Auto) 5.0 /HPF (0.0-6.0) 01/20/17 02:54 U Epithel Cells (Auto) 1.0 /HPF (0-13.0) 01/20/17 02:54 Urine Bacteria (Auto) 1+ /HPF (Negative) 01/20/17 02:54 Urine Mucus 1+ /HPF 01/20/17 02:54
[2017-01-27] MEDS: CATAPRES-TTS PATCH TD SCH (10:38)
[2017-01-27 11:12] LABS: Basophils % (Auto) 0.3 % (0.0-1.8); Eosinophils % (Auto) 1.2 % (0.0-4.3); Hematocrit 35.1 % (30.3-42.9); Hemoglobin 11.5 gm/dl (10.1-14.3); Mean Corpuscular HGB Conc 33 % (30-34); Mean Corpuscular Hemoglobin 29 pg (28-32); Mean Corpuscular Volume 89 fl (79-97); Platelet Count 184 K/mm3 (140-440); Red Blood Count 3.93 M/mm3 (3.65-5.03); Red Cell Distribution Width 12.3 % (13.2-15.2); White Blood Count 12.4 K/mm3 (4.5-11.0)
[2017-01-27 11:15] LABS: BUN/Creatinine Ratio 18; Blood Urea Nitrogen 11 mg/dL (7-17); Calcium 8.1 mg/dL (8.4-10.2); Chloride 90.7 mmol/L (98-107); Glucose 169 mg/dL (65-100); Potassium 3.7 mmol/L (3.6-5.0); Sodium 140 mmol/L (137-145)
[2017-01-27 11:17] LABS: Anion Gap 8 mmol/L
[2017-01-27 11:19] LABS: Carbon Dioxide 45 mmol/L (22-30)
[2017-01-28] MEDS: DESYREL PO SCH (00:01)
[2017-01-28] MEDS: LOVENOX SUB-Q SCH (10:28)
[2017-01-28] MEDS: MIRALAX 3350 PO SCH (10:28)
[2017-01-28] MEDS: COREG PO SCH (10:29)
[2017-01-28] MEDS: ARICEPT PO SCH (10:29)
[2017-01-28] MEDS: ZOLOFT PO SCH (10:29)
[2017-01-28] MEDS: PROTONIX PO SCH (10:29)
[2017-01-28] MEDS: CALTRATE PLUS PO SCH (10:29)
--- NOTE | 2017-01-28 19:26 | Progress Note ---
Assessment and Plan Assessment and plan: 87 -year-old woman with schizophrenia, dementia, hypertension, history of SBO and GIB due to erosive gastritis brought to the hospital for abdominal pain, decreased intake, evaluation for PEG placement 1. Low grade fever No symptoms/signs of infection Obtained CBC, BMP; slight leukocytosis present; UA ordered 01/27, not collected yet PEG site without erythema 2. Abdominal pain Unclear if she really has abdominal discomfort (due to her schizophrenia/ dementia with paranoid thoughts) CT abdomen/pelvis with no acute abnormality LFTs, lipase within normal limits Per nursing, tolerates by mouth, but has decreased intake GI consulted and requested nutrition consult for calorie count; then discussed with family and decided to proceed with PEG placement 01/24 3. Hypernatremia Secondary to dehydration Resolved with IV fluids 4. Dehydration Due to poor intake IV fluids Nursing encouraging by mouth intake 5. Leukocytosis Likely reactive, no infectious source identified Resolved 6. Mild protein caloric malnutrition Due to poor intake Prison Keeper consulted for supplementation Considering PEG placement 7. Hypertension On clonidine patch and Coreg As BP low and slight bradycardic,Coreg dose was decreased 8. Hyperlipidemia Continue statin 9. Paranoid schizophrenia Home medications, Seroquel/Zoloft/trazodone, restarted 10. Dementia On Aricept Supportive care 11. DVT prophylaxis Lovenox 12. Dispo Unable to return to assisting living facility due to PEG manager business information working on [facility] placement; awaiting insurance preauthorization History Interval history: No acute events, no new issues, awaiting placement Hospitalist Physical - Constitutional Vitals: Temp Pulse Resp BP Pulse Ox 99.3 F 67 18 136/62 96 01/28/17 16:00 01/28/17 16:00 01/28/17 16:00 01/28/17 16:00 01/28/17 16:00 General appearance: Present: no acute distress, obese - EENT Eyes: Present: PERRL, EOM intact - Neck Neck: Present: supple. Absent: enlarged thyroid, masses or JVD - Respiratory Respiratory effort: normal Respiratory: bilateral: CTA, negative: rhonchi, wheezing - Cardiovascular Rhythm: regular Heart Sounds: Present: S1 & S2. Absent: systolic murmur - Extremities Extremities: no ischemia - Abdominal General gastrointestinal: soft, non-tender, non-distended, normal bowel sounds, other (PEG) - Psychiatric Psychiatric: no appropriate mood/affect, no intact judgment & insight, no memory intact - Neurologic Neurologic: moves all extremities, other (resting tremor) Results - Labs CBC & Chem 7: 01/27/17 10:42 01/27/17 10:42 Labs: Laboratory Last Values WBC 12.4 K/mm3 (4.5-11.0) H 01/27/17 10:42 RBC 3.93 M/mm3 (3.65-5.03) 01/27/17 10:42 Hgb 11.5 gm/dl (10.1-14.3) 01/27/17 10:42 Hct 35.1 % (30.3-42.9) 01/27/17 10:42 MCV 89 fl (79-97) 01/27/17 10:42 MCH 29 pg (28-32) 01/27/17 10:42 MCHC 33 % (30-34) 01/27/17 10:42 RDW 12.3 % (13.2-15.2) L 01/27/17 10:42 Plt Count 184 K/mm3 (140-440) 01/27/17 10:42 Lymph % (Auto) 15.8 % (13.4-35.0) 01/27/17 10:42 [place] % (Auto) 13.6 % (0.0-7.3) H 01/27/17 10:42 Eos % (Auto) 1.2 % (0.0-4.3) 01/27/17 10:42 Baso % (Auto) 0.3 % (0.0-1.8) 01/27/17 10:42 Lymph # 2.0 K/mm3 (1.2-5.4) 01/27/17 10:42 [place] # 1.7 K/mm3 (0.0-0.8) H 01/27/17 10:42 Eos # 0.1 K/mm3 (0.0-0.4) 01/27/17 10:42 Baso # 0.0 K/mm3 (0.0-0.1) 01/27/17 10:42 Seg Neutrophils % 69.1 % (40.0-70.0) 01/27/17 10:42 Seg Neutrophils # 8.6 K/mm3 (1.8-7.7) H 01/27/17 10:42 Sodium 140 mmol/L (137-145) 01/27/17 10:42 Potassium 3.7 mmol/L (3.6-5.0) 01/27/17 10:42 Chloride 90.7 mmol/L (98-107) L 01/27/17 10:42 Carbon Dioxide 45 mmol/L (22-30) H* D 01/27/17 10:42 Anion Gap 8 mmol/L 01/27/17 10:42 BUN 11 mg/dL (7-17) 01/27/17 10:42 Creatinine 0.6 mg/dL (0.7-1.2) L 01/27/17 10:42 Estimated GFR > 60 ml/min 01/27/17 10:42 BUN/Creatinine Ratio 18 % 01/27/17 10:42 Glucose 169 mg/dL (65-100) H 01/27/17 10:42 POC Glucose 177 (70-105) H 01/28/17 17:24 Calcium 8.1 mg/dL (8.4-10.2) L 01/27/17 10:42 Total Bilirubin 0.50 mg/dL (0.1-1.2) 01/20/17 00:18 AST 23 units/L (5-40) 01/20/17 00:18 ALT 15 units/L (7-56) 01/20/17 00:18 Alkaline Phosphatase 97 units/L (35-129) 01/20/17 00:18 Total Creatine Kinase 115 units/L (30-135) 01/21/17 07:25 Total Protein 8.0 g/dL (6.3-8.2) 01/20/17 00:18 Albumin 3.5 g/dL (3.9-5) L 01/20/17 00:18 Albumin/Globulin Ratio 0.8 % 01/20/17 00:18 Lipase 14 units/L (13-60) 01/20/17 00:18 Urine Color Yellow (Yellow) 01/20/17 02:54 Urine Turbidity Clear (Clear) 01/20/17 02:54 Urine pH 5.0 (5.0-7.0) 01/20/17 02:54 Ur Specific [place] 1.030 (1.003-1.030) 01/20/17 02:54 Urine Protein 30 mg/dl mg/dL (Negative) 01/20/17 02:54 Urine Glucose (UA) Neg mg/dL (Negative) 01/20/17 02:54 Urine Ketones 20 mg/dL (Negative) 01/20/17 02:54 Urine Blood Mod (Negative) 01/20/17 02:54 Urine Nitrite Neg (Negative) 01/20/17 02:54 Urine Bilirubin Neg (Negative) 01/20/17 02:54 Urine Urobilinogen < 2.0 mg/dL (<2.0) 01/20/17 02:54 Ur Leukocyte Esterase Neg (Negative) 01/20/17 02:54 Urine WBC (Auto) 1.0 /HPF (0.0-6.0) 01/20/17 02:54 Urine RBC (Auto) 5.0 /HPF (0.0-6.0) 01/20/17 02:54 U Epithel Cells (Auto) 1.0 /HPF (0-13.0) 01/20/17 02:54 Urine Bacteria (Auto) 1+ /HPF (Negative) 01/20/17 02:54 Urine Mucus 1+ /HPF 01/20/17 02:54
[2017-01-29] MEDS: COREG PO SCH ×2 (00:49→11:09)
[2017-01-29] MEDS: DESYREL PO SCH (00:50)
[2017-01-29] MEDS: CALTRATE PLUS PO SCH ×2 (00:50→11:10)
[2017-01-29 06:19] LABS: Basophils % (Auto) 0.2 % (0.0-1.8); Eosinophils % (Auto) 1.2 % (0.0-4.3); Hematocrit 34.8 % (30.3-42.9); Hemoglobin 11.6 gm/dl (10.1-14.3); Mean Corpuscular HGB Conc 33 % (30-34); Mean Corpuscular Hemoglobin 30 pg (28-32); Mean Corpuscular Volume 90 fl (79-97); Platelet Count 214 K/mm3 (140-440); Red Blood Count 3.88 M/mm3 (3.65-5.03); Red Cell Distribution Width 12.7 % (13.2-15.2); White Blood Count 12.3 K/mm3 (4.5-11.0)
[2017-01-29 06:35] LABS: BUN/Creatinine Ratio 21; Blood Urea Nitrogen 15 mg/dL (7-17); Calcium 8.3 mg/dL (8.4-10.2); Chloride 92.4 mmol/L (98-107); Glucose 166 mg/dL (65-100); Potassium 4.3 mmol/L (3.6-5.0); Sodium 140 mmol/L (137-145)
[2017-01-29 06:36] LABS: Anion Gap 8 mmol/L
[2017-01-29 06:37] LABS: Carbon Dioxide 44 mmol/L (22-30)
[2017-01-29] MEDS: PROTONIX PO SCH (11:09)
[2017-01-29] MEDS: MIRALAX 3350 PO SCH (11:09)
[2017-01-29] MEDS: LOVENOX SUB-Q SCH (11:09)
[2017-01-29] MEDS: ZOLOFT PO SCH (11:09)
[2017-01-29] MEDS: ARICEPT PO SCH (11:09)
--- NOTE | 2017-01-29 14:32 | Progress Note ---
Assessment and Plan Assessment and plan: 87 -year-old woman with schizophrenia, dementia, hypertension, history of SBO and GIB due to erosive gastritis brought to the hospital for abdominal pain, decreased intake, evaluation for PEG placement 1. Low grade fever/SIRS No symptoms/signs of infection Obtained CBC, BMP; slight leukocytosis present; UA ordered 01/27 PEG site without erythema 2. Abdominal pain Unclear if she really has abdominal discomfort (due to her schizophrenia/ dementia with paranoid thoughts) CT abdomen/pelvis with no acute abnormality LFTs, lipase within normal limits Per nursing, tolerates by mouth, but has decreased intake GI consulted and requested nutrition consult for calorie count; then discussed with family and decided to proceed with PEG placement 01/24 3. Hypernatremia Secondary to dehydration Resolved with IV fluids 4. Dehydration Due to poor intake IV fluids Nursing encouraging by mouth intake 5. Leukocytosis Likely reactive, no infectious source identified Resolved 6. Mild protein caloric malnutrition Due to poor intake Stage Builder consulted for supplementation Considering PEG placement 7. Hypertension On clonidine patch and Coreg As BP low and slight bradycardic,Coreg dose was decreased 8. Hyperlipidemia Continue statin 9. Paranoid schizophrenia Home medications, Seroquel/Zoloft/trazodone, restarted 10. Dementia On Aricept Supportive care 11. DVT prophylaxis Lovenox 12. Dispo Unable to return to assisting living facility due to PEG manager msw working on jail placement; awaiting insurance preauthorization History Interval history: No acute events, no new issues, awaiting placement Hospitalist Physical - Constitutional Vitals: Temp Pulse Resp BP Pulse Ox 99.3 F 68 22 125/63 98 01/29/17 11:00 01/29/17 11:09 01/29/17 11:00 01/29/17 11:00 01/29/17 11:00 General appearance: Present: no acute distress, obese - EENT Eyes: Present: PERRL, EOM intact - Neck Neck: Present: supple. Absent: enlarged thyroid, masses or JVD - Respiratory Respiratory effort: normal Respiratory: bilateral: diminished, negative: rhonchi, wheezing - Cardiovascular Rhythm: regular Heart Sounds: Present: S1 & S2. Absent: systolic murmur - Extremities Extremities: no ischemia - Abdominal General gastrointestinal: soft, non-tender, non-distended, normal bowel sounds - Psychiatric Psychiatric: no appropriate mood/affect, no intact judgment & insight, no memory intact - Neurologic Neurologic: moves all extremities, other (resting tremor) Results - Labs CBC & Chem 7: 01/29/17 05:43 01/29/17 05:43 Labs: Laboratory Last Values WBC 12.3 K/mm3 (4.5-11.0) H 01/29/17 05:43 RBC 3.88 M/mm3 (3.65-5.03) 01/29/17 05:43 Hgb 11.6 gm/dl (10.1-14.3) 01/29/17 05:43 Hct 34.8 % (30.3-42.9) 01/29/17 05:43 MCV 90 fl (79-97) 01/29/17 05:43 MCH 30 pg (28-32) 01/29/17 05:43 MCHC 33 % (30-34) 01/29/17 05:43 RDW 12.7 % (13.2-15.2) L 01/29/17 05:43 Plt Count 214 K/mm3 (140-440) 01/29/17 05:43 Lymph % (Auto) 18.3 % (13.4-35.0) 01/29/17 05:43 [place] % (Auto) 10.5 % (0.0-7.3) H 01/29/17 05:43 Eos % (Auto) 1.2 % (0.0-4.3) 01/29/17 05:43 Baso % (Auto) 0.2 % (0.0-1.8) 01/29/17 05:43 Lymph # 2.3 K/mm3 (1.2-5.4) 01/29/17 05:43 [place] # 1.3 K/mm3 (0.0-0.8) H 01/29/17 05:43 Eos # 0.1 K/mm3 (0.0-0.4) 01/29/17 05:43 Baso # 0.0 K/mm3 (0.0-0.1) 01/29/17 05:43 Seg Neutrophils % 69.8 % (40.0-70.0) 01/29/17 05:43 Seg Neutrophils # 8.6 K/mm3 (1.8-7.7) H 01/29/17 05:43 Sodium 140 mmol/L (137-145) 01/29/17 05:43 Potassium 4.3 mmol/L (3.6-5.0) 01/29/17 05:43 Chloride 92.4 mmol/L (98-107) L 01/29/17 05:43 Carbon Dioxide 44 mmol/L (22-30) H* 01/29/17 05:43 Anion Gap 8 mmol/L 01/29/17 05:43 BUN 15 mg/dL (7-17) 01/29/17 05:43 Creatinine 0.7 mg/dL (0.7-1.2) 01/29/17 05:43 Estimated GFR > 60 ml/min 01/29/17 05:43 BUN/Creatinine Ratio 21 % 01/29/17 05:43 Glucose 166 mg/dL (65-100) H 01/29/17 05:43 POC Glucose 170 (70-105) H 01/29/17 11:33 Calcium 8.3 mg/dL (8.4-10.2) L 01/29/17 05:43 Total Bilirubin 0.50 mg/dL (0.1-1.2) 01/20/17 00:18 AST 23 units/L (5-40) 01/20/17 00:18 ALT 15 units/L (7-56) 01/20/17 00:18 Alkaline Phosphatase 97 units/L (35-129) 01/20/17 00:18 Total Creatine Kinase 115 units/L (30-135) 01/21/17 07:25 Total Protein 8.0 g/dL (6.3-8.2) 01/20/17 00:18 Albumin 3.5 g/dL (3.9-5) L 01/20/17 00:18 Albumin/Globulin Ratio 0.8 % 01/20/17 00:18 Lipase 14 units/L (13-60) 01/20/17 00:18 Urine Color Yellow (Yellow) 01/20/17 02:54 Urine Turbidity Clear (Clear) 01/20/17 02:54 Urine pH 5.0 (5.0-7.0) 01/20/17 02:54 Ur Specific [place] 1.030 (1.003-1.030) 01/20/17 02:54 Urine Protein 30 mg/dl mg/dL (Negative) 01/20/17 02:54 Urine Glucose (UA) Neg mg/dL (Negative) 01/20/17 02:54 Urine Ketones 20 mg/dL (Negative) 01/20/17 02:54 Urine Blood Mod (Negative) 01/20/17 02:54 Urine Nitrite Neg (Negative) 01/20/17 02:54 Urine Bilirubin Neg (Negative) 01/20/17 02:54 Urine Urobilinogen < 2.0 mg/dL (<2.0) 01/20/17 02:54 Ur Leukocyte Esterase Neg (Negative) 01/20/17 02:54 Urine WBC (Auto) 1.0 /HPF (0.0-6.0) 01/20/17 02:54 Urine RBC (Auto) 5.0 /HPF (0.0-6.0) 01/20/17 02:54 U Epithel Cells (Auto) 1.0 /HPF (0-13.0) 01/20/17 02:54 Urine Bacteria (Auto) 1+ /HPF (Negative) 01/20/17 02:54 Urine Mucus 1+ /HPF 01/20/17 02:54
[2017-01-29 15:12] LABS: Bacteria,Urine 1+ /HPF (Negative); Bilirubin,Urine NEG (Negative); Blood,Urine SM (Negative); Ketones,Urine NEG (Negative); Leukocyte Esterase,Urine LG (Negative); Nitrite,Urine NEG (Negative); Urobilinogen,Urine < 2.0 mg/dL (<2.0); WBC,Urine > 182.0 /HPF (0.0-6.0)
[2017-01-29] MEDS: NOVOLOG SUB-Q SCH (17:26)
[2017-01-30] MEDS: CALTRATE PLUS PO SCH ×3 (00:09→22:58)
[2017-01-30] MEDS: COREG PO SCH ×3 (00:09→23:05)
[2017-01-30] MEDS: TYLENOL PO PRN (00:13)
[2017-01-30] MEDS: DESYREL PO SCH ×2 (00:13→22:58)
[2017-01-30] MEDS: NOVOLOG SUB-Q SCH ×4 (06:59→17:18)
[2017-01-30] MEDS: MIRALAX 3350 PO SCH (10:51)
[2017-01-30] MEDS: LOVENOX SUB-Q SCH (10:51)
[2017-01-30] MEDS: PROTONIX PO SCH (10:51)
[2017-01-30] MEDS: ZOLOFT PO SCH (10:51)
[2017-01-30] MEDS: ARICEPT PO SCH (10:52)
[2017-01-30] MEDS: LEVAQUIN 500MG/100ML 500 MG/100 ML BAG IV SCH (15:21)
--- NOTE | 2017-01-30 16:54 | Progress Note ---
Assessment and Plan Assessment and plan: 87 -year-old woman with schizophrenia, dementia, hypertension, history of SBO and GIB due to erosive gastritis brought to the hospital for abdominal pain, decreased intake, evaluation for PEG placement 1. Low grade fever/SIRS No symptoms/signs of infection Obtained CBC, BMP; slight leukocytosis present; UA suggestive of UTI; obtain culture and start antibiotic PEG site without erythema 2. Abdominal pain Unclear if she really has abdominal discomfort (due to her schizophrenia/ dementia with paranoid thoughts) CT abdomen/pelvis with no acute abnormality LFTs, lipase within normal limits Per nursing, tolerates by mouth, but has decreased intake GI consulted and requested nutrition consult for calorie count; then discussed with family and decided to proceed with PEG placement 01/24 3. Hypernatremia Secondary to dehydration Resolved with IV fluids 4. Dehydration Due to poor intake IV fluids Nursing encouraging by mouth intake 5. Leukocytosis Likely reactive, no infectious source identified Resolved 6. Mild protein caloric malnutrition Due to poor intake Instructor [employer] consulted for supplementation Considering PEG placement 7. Hypertension On clonidine patch and Coreg As BP low and slight bradycardic,Coreg dose was decreased 8. Hyperlipidemia Continue statin 9. Paranoid schizophrenia Home medications, Seroquel/Zoloft/trazodone, restarted 10. Dementia On Aricept Supportive care 11. DVT prophylaxis Lovenox 12. Dispo Unable to return to assisting living facility due to PEG manager traffic working on detention placement; awaiting insurance preauthorization History Interval history: No acute events, no new issues, awaiting placement Hospitalist Physical - Constitutional Vitals: Temp Pulse Resp BP Pulse Ox 98.9 F 68 22 106/56 100 01/30/17 16:44 01/30/17 16:44 01/30/17 16:44 01/30/17 16:44 01/30/17 16:44 General appearance: Present: no acute distress, obese - EENT Eyes: Present: PERRL, EOM intact - Neck Neck: Present: supple. Absent: enlarged thyroid, masses or JVD - Respiratory Respiratory effort: normal Respiratory: bilateral: diminished, negative: rhonchi, wheezing - Cardiovascular Rhythm: regular Heart Sounds: Present: S1 & S2. Absent: systolic murmur - Extremities Extremities: no ischemia - Abdominal General gastrointestinal: soft, non-tender, non-distended, normal bowel sounds, other (PEG) - Psychiatric Psychiatric: no appropriate mood/affect, no intact judgment & insight, no memory intact, other (somnolent) - Neurologic Neurologic: moves all extremities, other (resting tremor) Results - Labs CBC & Chem 7: 01/29/17 05:43 01/29/17 05:43 Labs: Laboratory Last Values WBC 12.3 K/mm3 (4.5-11.0) H 01/29/17 05:43 RBC 3.88 M/mm3 (3.65-5.03) 01/29/17 05:43 Hgb 11.6 gm/dl (10.1-14.3) 01/29/17 05:43 Hct 34.8 % (30.3-42.9) 01/29/17 05:43 MCV 90 fl (79-97) 01/29/17 05:43 MCH 30 pg (28-32) 01/29/17 05:43 MCHC 33 % (30-34) 01/29/17 05:43 RDW 12.7 % (13.2-15.2) L 01/29/17 05:43 Plt Count 214 K/mm3 (140-440) 01/29/17 05:43 Lymph % (Auto) 18.3 % (13.4-35.0) 01/29/17 05:43 [place] % (Auto) 10.5 % (0.0-7.3) H 01/29/17 05:43 Eos % (Auto) 1.2 % (0.0-4.3) 01/29/17 05:43 Baso % (Auto) 0.2 % (0.0-1.8) 01/29/17 05:43 Lymph # 2.3 K/mm3 (1.2-5.4) 01/29/17 05:43 [place] # 1.3 K/mm3 (0.0-0.8) H 01/29/17 05:43 Eos # 0.1 K/mm3 (0.0-0.4) 01/29/17 05:43 Baso # 0.0 K/mm3 (0.0-0.1) 01/29/17 05:43 Seg Neutrophils % 69.8 % (40.0-70.0) 01/29/17 05:43 Seg Neutrophils # 8.6 K/mm3 (1.8-7.7) H 01/29/17 05:43 Sodium 140 mmol/L (137-145) 01/29/17 05:43 Potassium 4.3 mmol/L (3.6-5.0) 01/29/17 05:43 Chloride 92.4 mmol/L (98-107) L 01/29/17 05:43 Carbon Dioxide 44 mmol/L (22-30) H* 01/29/17 05:43 Anion Gap 8 mmol/L 01/29/17 05:43 BUN 15 mg/dL (7-17) 01/29/17 05:43 Creatinine 0.7 mg/dL (0.7-1.2) 01/29/17 05:43 Estimated GFR > 60 ml/min 01/29/17 05:43 BUN/Creatinine Ratio 21 % 01/29/17 05:43 Glucose 166 mg/dL (65-100) H 01/29/17 05:43 POC Glucose 180 (70-105) H 01/30/17 12:13 Calcium 8.3 mg/dL (8.4-10.2) L 01/29/17 05:43 Total Bilirubin 0.50 mg/dL (0.1-1.2) 01/20/17 00:18 AST 23 units/L (5-40) 01/20/17 00:18 ALT 15 units/L (7-56) 01/20/17 00:18 Alkaline Phosphatase 97 units/L (35-129) 01/20/17 00:18 Total Creatine Kinase 115 units/L (30-135) 01/21/17 07:25 Total Protein 8.0 g/dL (6.3-8.2) 01/20/17 00:18 Albumin 3.5 g/dL (3.9-5) L 01/20/17 00:18 Albumin/Globulin Ratio 0.8 % 01/20/17 00:18 Lipase 14 units/L (13-60) 01/20/17 00:18 Urine Color Yellow (Yellow) 01/29/17 14:27 Urine Turbidity Clear (Clear) 01/29/17 14:27 Urine pH 8.0 (5.0-7.0) H 01/29/17 14:27 Ur Specific [place] 1.018 (1.003-1.030) 01/29/17 14:27 Urine Protein 30 mg/dl mg/dL (Negative) 01/29/17 14:27 Urine Glucose (UA) Neg mg/dL (Negative) 01/29/17 14:27 Urine Ketones Neg mg/dL (Negative) 01/29/17 14:27 Urine Blood Sm (Negative) 01/29/17 14:27 Urine Nitrite Neg (Negative) 01/29/17 14:27 Urine Bilirubin Neg (Negative) 01/29/17 14:27 Urine Urobilinogen < 2.0 mg/dL (<2.0) 01/29/17 14:27 Ur Leukocyte Esterase Lg (Negative) 01/29/17 14:27 Urine WBC (Auto) > 182.0 /HPF (0.0-6.0) H 01/29/17 14:27 Urine RBC (Auto) 8.0 /HPF (0.0-6.0) 01/29/17 14:27 U Epithel Cells (Auto) 8.0 /HPF (0-13.0) 01/29/17 14:27 Urine Bacteria (Auto) 1+ /HPF (Negative) 01/29/17 14:27 Urine Mucus 1+ /HPF 01/20/17 02:54
[2017-01-30] MEDS: MORPHINE IV PRN (23:10)
[2017-01-31] MEDS: NOVOLOG SUB-Q SCH ×4 (01:30→18:51)
[2017-01-31] MEDS: CALTRATE PLUS PO SCH ×2 (09:56→22:28)
[2017-01-31] MEDS: MIRALAX 3350 PO SCH (09:56)
[2017-01-31] MEDS: ARICEPT PO SCH (09:56)
[2017-01-31] MEDS: PROTONIX PO SCH (09:56)
[2017-01-31] MEDS: LEVAQUIN 500MG/100ML 500 MG/100 ML BAG IV SCH (09:56)
[2017-01-31] MEDS: LOVENOX SUB-Q SCH (09:57)
[2017-01-31] MEDS: COREG PO SCH ×2 (09:57→22:29)
[2017-01-31] MEDS: ZOLOFT PO SCH (09:57)
[2017-01-31 11:54] LABS: Basophils % (Auto) 0.4 % (0.0-1.8); Hematocrit 34.2 % (30.3-42.9); Hemoglobin 10.9 gm/dl (10.1-14.3); Mean Corpuscular HGB Conc 32 % (30-34); Mean Corpuscular Hemoglobin 29 pg (28-32); Mean Corpuscular Volume 91 fl (79-97); Platelet Count 261 K/mm3 (140-440); Red Blood Count 3.75 M/mm3 (3.65-5.03); Red Cell Distribution Width 12.9 % (13.2-15.2); White Blood Count 11.8 K/mm3 (4.5-11.0)
[2017-01-31 12:10] LABS: BUN/Creatinine Ratio 29; Blood Urea Nitrogen 20 mg/dL (7-17); Calcium 8.6 mg/dL (8.4-10.2); Carbon Dioxide 36 mmol/L (22-30); Chloride 92.5 mmol/L (98-107); Glucose 172 mg/dL (65-100); Potassium 4.8 mmol/L (3.6-5.0); Sodium 136 mmol/L (137-145)
[2017-01-31 12:11] LABS: Anion Gap 12 mmol/L
--- NOTE | 2017-01-31 18:04 | Progress Note ---
Assessment and Plan Assessment and plan: 87 -year-old woman with schizophrenia, dementia, hypertension, history of SBO and GIB due to erosive gastritis brought to the hospital for abdominal pain, decreased intake, evaluation for PEG placement 1. Sepsis due to UTI WBC elevated, UA +; urine culture ordered, but not obtained Started on Rocephine 2. Abdominal pain Unclear if she really has abdominal discomfort (due to her schizophrenia/ dementia with paranoid thoughts) CT abdomen/pelvis with no acute abnormality LFTs, lipase within normal limits Per nursing, tolerates by mouth, but has decreased intake GI consulted and requested nutrition consult for calorie count; then discussed with family and decided to proceed with PEG placement 01/24 3. Hypernatremia Secondary to dehydration Resolved with IV fluids 4. Dehydration Due to poor intake IV fluids Nursing encouraging by mouth intake 5. Leukocytosis Likely reactive, no infectious source identified Resolved 6. Mild protein caloric malnutrition Due to poor intake Stained Glass Window Designer consulted for supplementation Considering PEG placement 7. Hypertension On clonidine patch and Coreg As BP low and slight bradycardic,Coreg dose was decreased 8. Hyperlipidemia Continue statin 9. Paranoid schizophrenia Home medications, Seroquel/Zoloft/trazodone, restarted 10. Dementia On Aricept Supportive care 11. DVT prophylaxis Lovenox 12. Dispo Unable to return to assisting living facility due to PEG abstract manager working on senior care placement; awaiting insurance preauthorization History Interval history: No acute events, no new issues, awaiting placement Hospitalist Physical - Constitutional Vitals: Temp Pulse Resp BP Pulse Ox 97.8 F 68 20 132/75 99 01/31/17 16:43 01/31/17 16:43 01/31/17 16:43 01/31/17 16:43 01/31/17 17:03 General appearance: Present: no acute distress, obese - EENT Eyes: Present: PERRL, EOM intact - Neck Neck: Present: supple, normal ROM. Absent: masses or JVD - Respiratory Respiratory effort: normal Respiratory: bilateral: CTA, negative: rhonchi, wheezing - Cardiovascular Rhythm: regular Heart Sounds: Present: S1 & S2. Absent: systolic murmur - Extremities Extremities: no ischemia - Abdominal General gastrointestinal: soft, non-tender, non-distended, normal bowel sounds - Psychiatric Psychiatric: no appropriate mood/affect, no intact judgment & insight, no memory intact - Neurologic Neurologic: moves all extremities, other (resting tremor) Results - Labs CBC & Chem 7: 01/31/17 11:01/31/17 11:19 Labs: Laboratory Last Values WBC 11.8 K/mm3 (4.5-11.0) H 01/31/17 11:19 RBC 3.75 M/mm3 (3.65-5.03) 01/31/17 11:19 Hgb 10.9 gm/dl (10.1-14.3) 01/31/17 11:19 Hct 34.2 % (30.3-42.9) 01/31/17 11:19 MCV 91 fl (79-97) 01/31/17 11:19 MCH 29 pg (28-32) 01/31/17 11:19 MCHC 32 % (30-34) 01/31/17 11:19 RDW 12.9 % (13.2-15.2) L 01/31/17 11:19 Plt Count 261 K/mm3 (140-440) 01/31/17 11:19 Lymph % (Auto) 18.1 % (13.4-35.0) 01/31/17 11:19 [place] % (Auto) 10.2 % (0.0-7.3) H 01/31/17 11:19 Eos % (Auto) 1.0 % (0.0-4.3) 01/31/17 11:19 Baso % (Auto) 0.4 % (0.0-1.8) 01/31/17 11: Lymph # 2.1 K/mm3 (1.2-5.4) 01/31/17 11:19 [place] # 1.2 K/mm3 (0.0-0.8) H 01/31/17 11:19 Eos # 0.1 K/mm3 (0.0-0.4) 01/31/17 11:19 Baso # 0.0 K/mm3 (0.0-0.1) 01/31/17 11:19 Seg Neutrophils % 70.3 % (40.0-70.0) H 01/31/17 11:19 Seg Neutrophils # 8.3 K/mm3 (1.8-7.7) H 01/31/17 11:19 Sodium 136 mmol/L (137-145) L 01/31/17 11:19 Potassium 4.8 mmol/L (3.6-5.0) 01/31/17 11:19 Chloride 92.5 mmol/L (98-107) L 01/31/17 11:19 Carbon Dioxide 36 mmol/L (22-30) H D 01/31/17 11:19 Anion Gap 12 mmol/L 01/31/17 11:19 BUN 20 mg/dL (7-17) H 01/31/17 11:19 Creatinine 0.7 mg/dL (0.7-1.2) 01/31/17 11:19 Estimated GFR > 60 ml/min 01/31/17 11:19 BUN/Creatinine Ratio 29 % 01/31/17 11:19 Glucose 172 mg/dL (65-100) H 01/31/17 11:19 POC Glucose 213 (70-105) H 01/31/17 12:11 Calcium 8.6 mg/dL (8.4-10.2) 01/31/17 11:19 Total Bilirubin 0.50 mg/dL (0.1-1.2) 01/20/17 00:18 AST 23 units/L (5-40) 01/20/17 00:18 ALT 15 units/L (7-56) 01/20/17 00:18 Alkaline Phosphatase 97 units/L (35-129) 01/20/17 00:18 Total Creatine Kinase 115 units/L (30-135) 01/21/17 07:25 Total Protein 8.0 g/dL (6.3-8.2) 01/20/17 00:18 Albumin 3.5 g/dL (3.9-5) L 01/20/17 00:18 Albumin/Globulin Ratio 0.8 % 01/20/17 00:18 Lipase 14 units/L (13-60) 01/20/17 00:18 Urine Color Yellow (Yellow) 01/29/17 14:27 Urine Turbidity Clear (Clear) 01/29/17 14:27 Urine pH 8.0 (5.0-7.0) H 01/29/17 14:27 Ur Specific [place] 1.018 (1.003-1.030) 01/29/17 14:27 Urine Protein 30 mg/dl mg/dL (Negative) 01/29/17 14:27 Urine Glucose (UA) Neg mg/dL (Negative) 01/29/17 14:27 Urine Ketones Neg mg/dL (Negative) 01/29/17 14:27 Urine Blood Sm (Negative) 01/29/17 14:27 Urine Nitrite Neg (Negative) 01/29/17 14:27 Urine Bilirubin Neg (Negative) 01/29/17 14:27 Urine Urobilinogen < 2.0 mg/dL (<2.0) 01/29/17 14:27 Ur Leukocyte Esterase Lg (Negative) 01/29/17 14:27 Urine WBC (Auto) > 182.0 /HPF (0.0-6.0) H 01/29/17 14:27 Urine RBC (Auto) 8.0 /HPF (0.0-6.0) 01/29/17 14:27 U Epithel Cells (Auto) 8.0 /HPF (0-13.0) 01/29/17 14:27 Urine Bacteria (Auto) 1+ /HPF (Negative) 01/29/17 14:27 Urine Mucus 1+ /HPF 01/20/17 02:54
[2017-01-31] MEDS: DESYREL PO SCH (22:29)
[2017-01-31] MEDS: MORPHINE IV PRN (22:36)
[2017-02-01] MEDS: NOVOLOG SUB-Q SCH ×2 (00:19→07:37)
[2017-02-01 08:52] VITALS: BP 130/70
--- NOTE | 2017-02-01 09:34 | Discharge Summary ---
Providers - Providers Date of Admission: 01/20/17 08:49 Date of discharge: 02/01/17 Attending physician: ISSAC DRUMMOND 01/20/17 13:09 Consult to Physician [CONS] Routine Consulting Provider: ANN TORRES Reason For Exam: Peg-placement and abdominal pain. Place consult to:: yes Notified:: yes Phone number called:: yes 01/21/17 12:51 Consult to Dietitian/Nutrition [CONS] Routine Physician Instructions: Reason For Exam: Consult for tube-feeding Reason for Consult: calorie count 01/25/17 13:29 Physical Therapy Evaluation and Treat [CONS] Routine Comment: Reason For Exam: for SNF placement 01/25/17 13:30 Occupational Therapy Evaluate and Treat [CONS] Routine Comment: Reason For Exam: for SNF placement Primary care physician: MECHANICAL FITTER Hospitalization Condition: Stable Disposition: DC/[place]-03 SNF [facility] Time spent for discharge: 35 min Core Measure Documentation - Palliative Care Palliative Care/ Comfort Measures: Not Applicable Exam - Constitutional Vitals: Temp Pulse Resp BP Pulse Ox 98.2 F 70 16 130/70 98 02/01/17 08:49 02/01/17 08:49 02/01/17 08:49 02/01/17 08:49 02/01/17 08:49 Plan Activity: advance as tolerated, fall precautions Diet: low cholesterol, low salt Follow up with: PRIMARY CARE, [Primary Care Provider] - 3-5 Days Prescriptions: traZODone [Desyrel] 50 mg PO QHS #30 tablet AtorvaSTATin [Lipitor] 10 mg PO DAILY #30 tablet Carvedilol [Coreg] 3.125 mg PO BID #60 tablet cloNIDine-TTS PATCH [Catapres-Tts Patch] 1 patch TD Q7D #4 patch Donepezil [Aricept] 10 mg PO QDAY #30 tablet Levofloxacin [Levaquin TAB] 500 mg PO QDAY #3 tablet Lipase/Protease/Amylase [Pancrestephanie Dr 10,500 Unit] 1 each FEEDTUBE PRN PRN #30 capsule PRN Reason: For Clogged Feeding Tube Pantoprazole [Protonix TAB] 40 mg PO QDAY #30 tablet Polyethylene Glycol 3350 [Miralax 3350] 17 gm PO QDAY #30 powd.pack Sertraline [Zoloft] 50 mg PO QDAY #30 tablet Simple Syrup 30 ml FEEDTUBE PRN PRN #30 oral.liqd PRN Reason: Hypoglycemia Sodium Bicarbonate 325 mg FEEDTUBE PRN PRN #30 tablet PRN Reason: For Clogged Feeding Tube
[2017-02-01] MEDS: LEVAQUIN 500MG/100ML 500 MG/100 ML BAG IV SCH (10:39)
[2017-02-01] MEDS: MIRALAX 3350 PO SCH (10:40)
[2017-02-01] MEDS: LOVENOX SUB-Q SCH (10:40)
[2017-02-01] MEDS: CALTRATE PLUS PO SCH (10:41)
[2017-02-01] MEDS: COREG PO SCH (10:41)
[2017-02-01] MEDS: PROTONIX PO SCH (10:41)
[2017-02-01] MEDS: ZOLOFT PO SCH (10:41)
[2017-02-01] MEDS: ARICEPT PO SCH (10:42)
== END 2017-02-01 12:20 | DRG 872 ==
LOC: ED 22:57 → 3A 01-20 08:49
PROVIDERS: ADMIT Internal Medicine; ATTEND Internal Medicine
PROC: 3E0234Z Introduction of Serum, Toxoid and Vaccine into Muscle, Percutaneous Approach (ICD-10-PCS; 2017-01-21)
PROC: 0DH63UZ Insertion of Feeding Device into Stomach, Percutaneous Approach (ICD-10-PCS; principal; 2017-01-24)
PROC: 3E0G76Z Introduction of Nutritional Substance into Upper GI, Via Natural or Artificial Opening (ICD-10-PCS; 2017-01-24)
PROC: 0DJ08ZZ Inspection of Upper Intestinal Tract, Via Natural or Artificial Opening Endoscopic (ICD-10-PCS; 2017-01-24)
DX: A41.9 Sepsis, unspecified organism (principal); E87.0 Hyperosmolality and hypernatremia; E44.1 Mild protein-calorie malnutrition; F20.0 Paranoid schizophrenia; N39.0 Urinary tract infection, site not specified; E86.0 Dehydration; R13.10 Dysphagia, unspecified; R00.1 Bradycardia, unspecified; F03.90 Unspecified dementia, unspecified severity, without behavioral disturbance, psychotic disturbance, mood disturbance, and anxiety; E78.5 Hyperlipidemia, unspecified; I10 Essential (primary) hypertension; K21.9 Gastro-esophageal reflux disease without esophagitis; J44.9 Chronic obstructive pulmonary disease, unspecified; E66.9 Obesity, unspecified; K44.9 Diaphragmatic hernia without obstruction or gangrene; K29.70 Gastritis, unspecified, without bleeding; Z88.0 Allergy status to penicillin; Z88.1 Allergy status to other antibiotic agents; Z79.899 Other long term (current) drug therapy; Z86.73 Personal history of transient ischemic attack (TIA), and cerebral infarction without residual deficits; Z68.35 Body mass index [BMI] 35.0-35.9, adult; Z98.51 Tubal ligation status; Z87.891 Personal history of nicotine dependence; Z23 Encounter for immunization
CPT/HCPCS: 36415; 71010; 74176; 80048; 80053; 81001; 82550; 82962; 83690; 85025; 87086; 90686; 94760; 96372; A9270-GY; G8978-GP; G8979-GP; J0690; J1580; J1650; J1815; J1956; J2250; J2270; J2704; J3010; J3486; J7030; J7070

== ENCOUNTER 2019-04-18 14:13 | Inpatient (IN) | payer MEDICARE ==
--- NOTE | 2019-04-18 14:28 | Event Note ---
ED Screening Note Date of service: 04/18/19 Time: 14:22 ED Screening Note: This is a 89 y.o. F. that presents to the ER with AMS from assisted living with sibling. Patient sibling states assisted living said patient will not respond to questions. Patient is guarding when attempt to touch abdomen. This initial assessment/diagnostic orders/clinical plan/treatment(s) is/are subject to change based on patients health status, clinical progression and re- assessment by fellow clinical providers in the ED. Further treatment and workup at subsequent clinical providers discretion. Patient/guardian urged not to elope from the ED as their condition may be serious if not clinically assessed and managed. Initial orders include: Labs EKG CT of head
[2019-04-18 14:57] LABS: Basophils % (Auto) 0.2 % (0.0-1.8); Eosinophils # (Auto) 0.1 K/mm3 (0.0-0.4); Eosinophils % (Auto) 0.5 % (0.0-4.3); Hematocrit 42.7 % (30.3-42.9); Lymphocytes # (Auto) 3.1 K/mm3 (1.2-5.4); Mean Corpuscular HGB Conc 33 % (30-34); Mean Corpuscular Volume 90 fl (79-97); Monocytes % (Auto) 7.7 % (0.0-7.3); Platelet Count 240 K/mm3 (140-440); Red Blood Count 4.73 M/mm3 (3.65-5.03); Red Cell Distribution Width 13.8 % (13.2-15.2)
[2019-04-18 15:22] LABS: Alanine Aminotransferase 33 units/L (7-56); Albumin 3.6 g/dL (3.9-5); BUN/Creatinine Ratio 26; Blood Urea Nitrogen 23 mg/dL (7-17); Calcium 9.4 mg/dL (8.4-10.2); Hemolysis Index 12
--- NOTE | 2019-04-18 19:56 | Cat Scan Report ---
NONENHANCED CT SCAN OF THE HEAD: INDICATION / CLINICAL INFORMATION: 89 years Female; AMS. TECHNIQUE: Routine CT head without contrast. All CT scans at this location are performed using CT dos e reduction for ALARA by means of automated exposure control. COMPARISON: CT scan of the brain from 08/26/2018 FINDINGS: BRAIN / INTRACRANIAL CONTENTS: No acute hemorrhage, mass effect, midline shift, hydrocephalus, or acu te, large territorial infarct. Extensive periventricular low density areas are seen due to microvascu lar faint angiopathy. 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 Patchy areas of volume loss is seen in the cerebral hemispheres bilaterally. Of CT findings remain un changed. CRANIOCERVICAL JUNCTION: No significant abnormality. ORBITS: No significant abnormality of visualized orbits. SINUSES / MASTOIDS: No significant abnormality of the visualized paranasal sinuses or mastoid air opal ls. ADDITIONAL FINDINGS: None. IMPRESSION: No focal parenchymal lesion in the brain CT findings remain unchanged. Signer Name: Ann Sanchez MD Signed: 04/18/2019 7:52 PM Workstation Name: [id number]
--- NOTE | 2019-04-18 20:49 | Emergency Department Report ---
ED General Adult HPI - General Chief complaint: Altered Mental Status Stated complaint: ALTERED MENTAL STATUS Time Seen by Provider: 04/18/19 14:22 Source: patient, family Mode of arrival: Wheelchair Limitations: Altered Mental Status - History of Present Illness Initial comments: Patient presents to the emergency department from a local assisted living for altered mental status. Per the daughter the patient has not been acting like herself for the last 2 days. Per the family the patient has been cooperative and not taken her medications or eating. After being evaluated by the physician at the assisted living today they were instructed to have her to go to the emergency department for evaluation. The patient is from [facility] -: unknown Severity scale (0 -10): 0 Consistency: constant Improves with: none Worsens with: none Associated Symptoms: denies other symptoms Treatments Prior to Arrival: none - Related Data Home Medications Medication Instructions Recorded Confirmed Last Taken Quetiapine Fumarate [Seroquel] 150 mg PO TID 01/20/16 08/26/18 02/17/18 19:46 Donepezil [Aricept] 10 mg PO HS 02/17/18 08/26/18 02/16/18 20:00 carvediloL [Coreg] 12.5 mg PO BID 02/17/18 08/26/18 02/17/18 08:00 Aspirin 81 mg PO DAILY 08/26/18 08/26/18 Unknown Fe Fumarate/FA/Mv, Min Comb#15 1 each PO BID 08/26/18 08/26/18 Unknown [Hemocyte Plus] Omeg3/Dha/Epa/Fish Oil/L.casei 1 cap PO DAILY 08/26/18 08/26/18 Unknown [Restora Capsule] Simethicone [Gas Relief] 125 mg PO BID 08/26/18 08/26/18 Unknown Previous Rx's Medication Instructions Recorded Last Taken Type AtorvaSTATin 10 mg PO DAILY #30 tablet 02/01/17 Unknown Rx Pantoprazole [Protonix TAB] 40 mg PO QDAY #30 tablet 02/01/17 02/16/18 08:00 Rx Sertraline [Zoloft] 50 mg PO QDAY #30 tablet 02/01/17 02/16/18 08:00 Rx cloNIDine-TTS PATCH [Catapres-Tts 1 patch TD Q7D #4 patch 02/01/17 Unknown Rx 0.2mg Patch] Allergies Allergy/AdvReac Type Severity Reaction Status Date / Time clindamycin Allergy Anaphylaxis Verified 08/03/14 23:57 Penicillins Allergy Anaphylaxis Verified 08/03/14 23:57 ED Review of Systems ROS: Stated complaint: ALTERED MENTAL STATUS Other details as noted in HPI Comment: Unobtainable due to pts medical conditions ED Past Medical Hx - Past Medical History Previous Medical History?: Yes Hx Hypertension: Yes Hx CVA: Yes Hx Congestive Heart Failure: No Hx Diabetes: No Hx Deep Vein Thrombosis: No Hx GERD: Yes Hx Psychiatric Treatment: Yes (Paranoid Schizophrenia) Hx Asthma: No Hx COPD: Yes Hx Dementia: Yes Hx HIV: No Additional medical history: alzheimers. High cholesterol - Surgical History Past Surgical History?: Yes Hx Pacemaker: No Hx Internal Defibrillator: No Additional Surgical History: tubial ligation, cataract bilateral - Social History Smoking Status: Never Smoker Substance Use Type: None - Medications Home Medications: Home Medications Medication Instructions Recorded Confirmed Last Taken Type Quetiapine Fumarate [Seroquel] 150 mg PO TID 01/20/16 08/26/18 02/17/18 19:46 History AtorvaSTATin 10 mg PO DAILY #30 tablet 02/01/17 08/26/18 Unknown Rx Pantoprazole [Protonix TAB] 40 mg PO QDAY #30 tablet 02/01/17 08/26/18 02/16/18 08:00 Rx Sertraline [Zoloft] 50 mg PO QDAY #30 tablet 02/01/17 08/26/18 02/16/18 08:00 Rx cloNIDine-TTS PATCH [Catapres-Tts 1 patch TD Q7D #4 patch 02/01/17 08/26/18 Unknown Rx 0.2mg Patch] Donepezil [Aricept] 10 mg PO HS 02/17/18 08/26/18 02/16/18 20:00 History carvediloL [Coreg] 12.5 mg PO BID 02/17/18 08/26/18 02/17/18 08:00 History Aspirin 81 mg PO DAILY 08/26/18 08/26/18 Unknown History Fe Fumarate/FA/Mv, Min Comb#15 1 each PO BID 08/26/18 08/26/18 Unknown History [Hemocyte Plus] Omeg3/Dha/Epa/Fish Oil/L.casei 1 cap PO DAILY 08/26/18 08/26/18 Unknown History [Restora Capsule] Simethicone [Gas Relief] 125 mg PO BID 08/26/18 08/26/18 Unknown History ED Physical Exam - General Limitations: Altered Mental Status General appearance: other (Altered) - Head Head exam: Present: atraumatic, normocephalic - Eye Eye exam: Present: normal appearance, PERRL, EOMI Pupils: Present: normal accommodation, irregular - ENT ENT exam: Present: mucous membranes moist - Neck Neck exam: Present: normal inspection - Respiratory Respiratory exam: Present: normal lung sounds bilaterally. Absent: respiratory distress - Cardiovascular Cardiovascular Exam: Present: regular rate, normal rhythm - GI/Abdominal GI/Abdominal exam: Present: soft, normal bowel sounds. Absent: distended, tenderness - Neurological Exam Neurological exam: Present: other (not able to completely assess due to the patient's condition) - Psychiatric Psychiatric exam: Present: other (not able to completely assess due to the patient's condition) - Skin Skin exam: Present: warm, dry ED Course Vital Signs 04/18/19 04/18/19 14:18 20:40 Temperature 97.1 F L 97.5 F L Pulse Rate 67 76 Respiratory 18 18 Rate Blood Pressure 139/60 Blood Pressure 180/100 [Left] O2 Sat by Pulse 95 100 Oximetry ED Medical Decision Making - Lab Data Result diagrams: 04/18/19 14:45 04/18/19 14:45 Lab Results 04/18/19 04/18/19 04/18/19 Range/Units 14:31 14:45 14:45 WBC 12.5 H (4.5-11.0) K/mm3 RBC 4.73 (3.65-5.03) M/mm3 Hgb 14.0 (10.1-14.3) gm/dl Hct 42.7 (30.3-42.9) % MCV 90 (79-97) fl MCH 30 (28-32) pg MCHC 33 (30-34) % RDW 13.8 (13.2-15.2) % Plt Count 240 (140-440) K/mm3 Lymph % (Auto) 25.0 (13.4-35.0) % [place] % (Auto) 7.7 H (0.0-7.3) % Eos % (Auto) 0.5 (0.0-4.3) % Baso % (Auto) 0.2 (0.0-1.8) % Lymph # 3.1 (1.2-5.4) K/mm3 [place] # 1.0 H (0.0-0.8) K/mm3 Eos # 0.1 (0.0-0.4) K/mm3 Baso # 0.0 (0.0-0.1) K/mm3 Seg Neutrophils % 66.6 (40.0-70.0) % Seg Neutrophils # 8.3 H (1.8-7.7) K/mm3 Sodium 142 (137-145) mmol/L Potassium 4.3 (3.6-5.0) mmol/L Chloride 103.5 (98-107) mmol/L Carbon Dioxide 21 L (22-30) mmol/L Anion Gap 22 mmol/L BUN 23 H (7-17) mg/dL Creatinine 0.9 (0.7-1.2) mg/dL Estimated GFR > 60 ml/min BUN/Creatinine Ratio 26 % Glucose 129 H (65-100) mg/dL POC Glucose 122 H (70-105) Calcium 9.4 (8.4-10.2) mg/dL Total Bilirubin 0.40 (0.1-1.2) mg/dL AST 31 (5-40) units/L ALT 33 (7-56) units/L Alkaline Phosphatase 155 H (35-129) units/L Troponin T (0.00-0.029) ng/mL Total Protein 8.4 H (6.3-8.2) g/dL Albumin 3.6 L (3.9-5) g/dL Albumin/Globulin Ratio 0.8 % Urine Color (Yellow) Urine Turbidity (Clear) Urine pH (5.0-7.0) Ur Specific [place] (1.003-1.030) Urine Protein (Negative) mg/dL Urine Glucose (UA) (Negative) mg/dL Urine Ketones (Negative) mg/dL Urine Blood (Negative) Urine Nitrite (Negative) Urine Bilirubin (Negative) Urine Urobilinogen (<2.0) mg/dL Ur Leukocyte Esterase (Negative) Urine WBC (Auto) (0.0-6.0) /HPF Urine RBC (Auto) (0.0-6.0) /HPF U Epithel Cells (Auto) (0-13.0) /HPF Urine Mucus /HPF 04/18/19 04/18/19 Range/Units 20:18 21:40 WBC (4.5-11.0) K/mm3 RBC (3.65-5.03) M/mm3 Hgb (10.1-14.3) gm/dl Hct (30.3-42.9) % MCV (79-97) fl MCH (28-32) pg MCHC (30-34) % RDW (13.2-15.2) % Plt Count (140-440) K/mm3 Lymph % (Auto) (13.4-35.0) % [place] % (Auto) (0.0-7.3) % Eos % (Auto) (0.0-4.3) % Baso % (Auto) (0.0-1.8) % Lymph # (1.2-5.4) K/mm3 [place] # (0.0-0.8) K/mm3 Eos # (0.0-0.4) K/mm3 Baso # (0.0-0.1) K/mm3 Seg Neutrophils % (40.0-70.0) % Seg Neutrophils # (1.8-7.7) K/mm3 Sodium (137-145) mmol/L Potassium (3.6-5.0) mmol/L Chloride (98-107) mmol/L Carbon Dioxide (22-30) mmol/L Anion Gap mmol/L BUN (7-17) mg/dL Creatinine (0.7-1.2) mg/dL Estimated GFR ml/min BUN/Creatinine Ratio % Glucose (65-100) mg/dL POC Glucose (70-105) Calcium (8.4-10.2) mg/dL Total Bilirubin (0.1-1.2) mg/dL AST (5-40) units/L ALT (7-56) units/L Alkaline Phosphatase (35-129) units/L Troponin T < 0.010 (0.00-0.029) ng/mL Total Protein (6.3-8.2) g/dL Albumin (3.9-5) g/dL Albumin/Globulin Ratio % Urine Color [place] (Yellow) Urine Turbidity Slightly-cloudy (Clear) Urine pH 5.0 (5.0-7.0) Ur Specific [place] 1.025 (1.003-1.030) Urine Protein 30 mg/dl (Negative) mg/dL Urine Glucose (UA) Neg (Negative) mg/dL Urine Ketones Tr (Negative) mg/dL Urine Blood Neg (Negative) Urine Nitrite Neg (Negative) Urine Bilirubin Neg (Negative) Urine Urobilinogen < 2.0 (<2.0) mg/dL Ur Leukocyte Esterase Neg (Negative) Urine WBC (Auto) 1.0 (0.0-6.0) /HPF Urine RBC (Auto) 4.0 (0.0-6.0) /HPF U Epithel Cells (Auto) < 1.0 (0-13.0) /HPF Urine Mucus 1+ /HPF - EKG Data -: EKG Interpreted by Me EKG shows normal: sinus rhythm Rate: normal - Radiology Data Radiology results: report reviewed Critical care attestation.: If time is entered above; I have spent that time in minutes in the direct care of this critically ill patient, excluding procedure time. ED Disposition Clinical Impression: Altered mental status, Leukocytosis Disposition: OP ADMIT IP TO THIS HOSP Is pt being admited?: Yes Does the pt Need Aspirin: No Condition: Fair [facility] - 3-5 Days - Assessment Assessment Interval: Baseline - Level of Consciousness 1a. Level of Consciousness: arousable/minor stimuli - LOC Questions 1b. LOC Questions: answers no questions correctly - LOC Command 1c. LOC Commands: performs tasks correctly - Best Gaze 2. Best Gaze: normal - Visual 3. Visual: no visual loss - Facial Palsy 4. Facial Palsy: normal symmetrical movement - Motor Arm 5a. Motor Arm Left: no drift 5b. Motor Arm Right: no drift - Motor Leg 6a. Motor Leg Left: no drift 6b. Motor Leg Right: no drift - Limb Ataxia 7. Limb Ataxia: absent - Sensory 8. Sensory: normal - Best Language 9. Best Language: no aphasia - Dysarthria 10. Dysarthria: normal - Extinction and Inattention 11. Extinction/Inattention: no abnormality - Scoring Total Score: 3 Stroke Severity: Minor Stroke
--- NOTE | 2019-04-18 21:32 | XRay Report ---
CHEST 1 VIEW INDICATION: ams. COMPARISON: 08/25/2018. FINDINGS: Support devices: None. Heart: Normal. Lungs/Pleura: No acute pulmonary or pleural findings. IMPRESSION: 1. No acute findings. Signer Name: Lewis Sloan MD Signed: 04/18/2019 9:28 PM Workstation Name: [id number]
[2019-04-18 22:05] LABS: Bilirubin,Urine NEG (Negative); Blood,Urine NEG (Negative); Color,Urine Amber (Yellow); Mucus,Urine 1+ /HPF; Urobilinogen,Urine < 2.0 mg/dL (<2.0)
[2019-04-18] MEDS ORDERED: SODIUM CHLORIDE 0.9% 1000 ML 1,000 ML IV ONE (23:07)
[2019-04-18] MEDS ORDERED: SODIUM CHLORIDE 0.9% 1000 ML 1,000 ML ONE (23:36)
[2019-04-19] MEDS ORDERED: MAGNESIUM HYDROXIDE (MOM) ORAL LIQD UDC PO PRN (00:29)
[2019-04-19] MEDS ORDERED: MORPHINE 2 MG/1 ML INJ IV PRN (00:29)
[2019-04-19] MEDS ORDERED: ACETAMINOPHEN 325 MG TAB PO PRN (00:29)
[2019-04-19] MEDS ORDERED: ONDANSETRON 4 MG/2 ML INJ IV PRN (00:29)
[2019-04-19] MEDS ORDERED: SODIUM CHLORIDE 0.9% 1000 ML 1,000 ML IV SCH (00:30)
--- NOTE | 2019-04-19 01:46 | History and Physical Report ---
History of Present Illness Date of examination: 04/19/19 Date of admission: 04/18/19 23:11 Chief complaint: Altered mental status History of present illness: 89-year-old female with known history of hypertension, history of schizophrenia has CVA resident of an assisted living facility [facility] presents to the emergency room today because of changes in mental status. Patient has not been acting his usual self. There has been no history of fever or chills, no chest pain no shortness of breath, no nausea vomiting, no diarrhea and no hematuria or dysuria. Patient is not a good historian most of the information was gotten from the emergency room physician as family was not available. Past History Past Medical History: hypertension, hyperlipidemia, stroke, other (Schizophrenia, GERD) Past Surgical History: cataract removal, Other (2 by ligation) Social history: no significant social history Family history: no significant family history Medications and Allergies Allergies Allergy/AdvReac Type Severity Reaction Status Date / Time clindamycin Allergy Anaphylaxis Verified 08/03/14 23:57 Penicillins Allergy Anaphylaxis Verified 08/03/14 23:57 Home Medications Medication Instructions Recorded Confirmed Last Taken Type Quetiapine Fumarate [Seroquel] 150 mg PO TID 01/20/16 08/26/18 02/17/18 19:46 History AtorvaSTATin 10 mg PO DAILY #30 tablet 02/01/17 08/26/18 Unknown Rx Pantoprazole [Protonix TAB] 40 mg PO QDAY #30 tablet 02/01/17 08/26/18 02/16/18 08:00 Rx Sertraline [Zoloft] 50 mg PO QDAY #30 tablet 02/01/17 08/26/18 02/16/18 08:00 Rx cloNIDine-TTS PATCH [Catapres-Tts 1 patch TD Q7D #4 patch 02/01/17 08/26/18 Unknown Rx 0.2mg Patch] Donepezil [Aricept] 10 mg PO HS 02/17/18 08/26/18 02/16/18 20:00 History carvediloL [Coreg] 12.5 mg PO BID 02/17/18 08/26/18 02/17/18 08:00 History Aspirin 81 mg PO DAILY 08/26/18 08/26/18 Unknown History Fe Fumarate/FA/Mv, Min Comb#15 1 each PO BID 08/26/18 08/26/18 Unknown History [Hemocyte Plus] Omeg3/Dha/Epa/Fish Oil/L.casei 1 cap PO DAILY 08/26/18 08/26/18 Unknown History [Restora Capsule] Simethicone [Gas Relief] 125 mg PO BID 08/26/18 08/26/18 Unknown History Active Meds: Active Medications Acetaminophen (Tylenol) 650 mg PO Q4H PRN PRN Reason: Pain MILD(1-3)/Fever >100.5/GUEVARA Sodium Chloride (Nacl 0.9% 1000 Ml) 1,000 mls @ 100 mls/hr IV ONCE ONE Stop: 04/19/19 09:06 Last Admin: 04/18/19 23:55 Dose: 100 mls/hr Documented by: Sodium Chloride (Nacl 0.9% 1000 Ml) 1,000 mls @ 75 mls/hr IV DIRECT ELANA Magnesium Hydroxide (Milk Of Magnesia) 30 ml PO Q4H PRN PRN Reason: Constipation Morphine Sulfate (Morphine) 2 mg IV Q4H PRN PRN Reason: Pain, Moderate (4-6) Ondansetron HCl (Zofran) 4 mg IV Q8H PRN PRN Reason: Nausea And Vomiting Sodium Chloride (Sodium Chloride Flush Syringe 10 Ml) 10 ml IV BID ELANA Sodium Chloride (Sodium Chloride Flush Syringe 10 Ml) 10 ml IV PRN PRN PRN Reason: LINE FLUSH Review of Systems Neurological: change in mentation Exam - Constitutional Vitals: Temp Pulse Resp BP Pulse Ox 97.5 F L 76 18 180/100 100 04/18/19 20:40 04/18/19 20:40 04/18/19 20:40 04/18/19 20:40 04/18/19 20:40 General appearance: Present: no acute distress, well-nourished - EENT Eyes: Present: PERRL, EOM intact ENT: hearing intact, clear oral mucosa, dentition normal - Neck Neck: Present: supple, normal ROM - Respiratory Respiratory effort: normal Respiratory: bilateral: CTA - Cardiovascular Rhythm: regular Heart Sounds: Present: S1 & S2 - Extremities Extremities: no ischemia, No edema, Full ROM Peripheral Pulses: within normal limits - Abdominal General gastrointestinal: Present: soft, non-tender - Integumentary Integumentary: Present: clear, warm, dry - Musculoskeletal Musculoskeletal: strength equal bilaterally - Psychiatric Psychiatric: cooperative, agitated (Slightly agitated) - Neurologic Neurologic: moves all extremities, other (Alert but appears confused) Results - Labs CBC & Chem 7: 04/18/19 14:45 04/18/19 14:45 Labs: Abnormal lab results 04/18/19 04/18/19 04/18/19 Range/Units 14:31 14:45 14:45 WBC 12.5 H (4.5-11.0) K/mm3 [place] % (Auto) 7.7 H (0.0-7.3) % [place] # 1.0 H (0.0-0.8) K/mm3 Seg Neutrophils # 8.3 H (1.8-7.7) K/mm3 Carbon Dioxide 21 L (22-30) mmol/L BUN 23 H (7-17) mg/dL Glucose 129 H (65-100) mg/dL POC Glucose 122 H (70-105) Alkaline Phosphatase 155 H (35-129) units/L Total Protein 8.4 H (6.3-8.2) g/dL Albumin 3.6 L (3.9-5) g/dL Assessment and Plan - Patient Problems (1) Altered mental status Current Visit: Yes Status: Acute Plan to address problem: Etiology is unclear. Will monitor mental status. (2) Dehydration Current Visit: Yes Status: Acute Plan to address problem: We will place patient on IV fluid. Will monitor BUN and creatinine. (3) Hypertension Current Visit: No Status: Chronic Plan to address problem: We will resume routine home medications once reconciled. Will monitor vital signs closely. (4) DVT prophylaxis Current Visit: No Status: Acute Plan to address problem: Patient placed on subcutaneous heparin. (5) Full code status Current Visit: Yes Status: Acute
--- NOTE | 2019-04-19 16:22 | Progress Note ---
Assessment and Plan Assessment and plan: 89-year-old female with known history of hypertension, history of schizophrenia has CVA resident of an assisted living facility [facility] presents to the emergency room today because of changes in mental status. Patient has not been acting his usual self. There has been no history of fever or chills, no chest pain no shortness of breath, no nausea vomiting, no diarrhea and no hematuria or dysuria. Patient is not a good historian most of the information was gotten from the emergency room physician as family was not available. Chest x-ray is normal CT head shows no acute pathology * Patient was noted to have wheezing this morning but no evidence of respiratory failure will add DuoNeb still with medical regimen. - Patient Problems (1) Altered mental status/encephalopathy with underlying schizophrenia and prior CVA Current Visit: Yes Status: Acute Plan to address problem: Etiology is unclear. Although this could be an exacerbation of the schizophrenia again no clear etiology why. We will continue monitor mental status. Will obtain psychiatric consult to assist in management. If still no resolution will probably request an MRI to ensure no stroke. (2) Dehydration Current Visit: Yes Status: Acute Plan to address problem: We will place patient on IV fluid. Will monitor BUN and creatinine. (3) Hypertension Current Visit: No Status: Chronic Plan to address problem: We will resume routine home medications once reconciled. Will monitor vital signs closely. (4) hypertension Current Visit: Yes Status: Acute Likely secondary to agitation, will add hydralazine as needed (5) DVT prophylaxis Current Visit: No Status: Acute Plan to address problem: Patient placed on subcutaneous heparin. No family present at this time. Case discussed with the nursing staff. Anticipate discharge in 1 to 2 days History Interval history: Patient seen and examined, resting comfortable but still incoherent. There is no information of patients baseline mental status except notation in the chart from the family that the patient was being uncooperative at the assisted living facility more confused than normal. The nurse had noticed that the patient's blood pressure was elevated during periods of agitation. Hospitalist Physical - Physical exam Narrative exam: VITAL SIGNS: Reviewed. GENERAL: The patient appears normally developed otherwise agitated and incoherent, Vital signs as documented. HEAD: No signs of head trauma. EYES: Pupils are equal. Extraocular motions intact. EARS: Hearing grossly intact. MOUTH: Oropharynx is normal. NECK: No adenopathy, no JVD. CHEST: Chest with clear breath sounds bilaterally. No wheezes, rales, or rhonchi. CARDIAC: Regular rate and rhythm. S1 and S2, without murmurs, gallops, or rubs. VASCULAR: No Edema. Peripheral pulses normal and equal in all extremities. ABDOMEN: Soft, non tender and non distended. No rebound or guarding, and no masses palpated. Bowel Sounds normal. MUSCULOSKELETAL: Good range of motion of all major joints. Extremities without clubbing, cyanosis or edema. NEUROLOGIC EXAM: Alert and awake unable to assess orientation as patient does not answer any question but just moans. no focal sensory or strength deficits. PSYCHIATRIC: Mood agitated l. SKIN: detail exam as documented in skin assessment - Constitutional Vitals: Temp Pulse Resp BP Pulse Ox 99.1 F 70 20 170/101 97 04/19/19 13:10 04/19/19 13:10 04/19/19 13:59 04/19/19 13:10 04/19/19 13:59 General appearance: Present: no acute distress, well-nourished Results - Labs CBC & Chem 7: 04/18/19 14:45 04/18/19 14:45 Labs: Laboratory Last Values WBC 12.5 K/mm3 (4.5-11.0) H 04/18/19 14:45 RBC 4.73 M/mm3 (3.65-5.03) 04/18/19 14:45 Hgb 14.0 gm/dl (10.1-14.3) 04/18/19 14:45 Hct 42.7 % (30.3-42.9) 04/18/19 14:45 MCV 90 fl (79-97) 04/18/19 14:45 MCH 30 pg (28-32) 04/18/19 14:45 MCHC 33 % (30-34) 04/18/19 14:45 RDW 13.8 % (13.2-15.2) 04/18/19 14:45 Plt Count 240 K/mm3 (140-440) 04/18/19 14:45 Lymph % (Auto) 25.0 % (13.4-35.0) 04/18/19 14:45 [place] % (Auto) 7.7 % (0.0-7.3) H 04/18/19 14:45 Eos % (Auto) 0.5 % (0.0-4.3) 04/18/19 14:45 Baso % (Auto) 0.2 % (0.0-1.8) 04/18/19 14:45 Lymph # 3.1 K/mm3 (1.2-5.4) 04/18/19 14:45 [place] # 1.0 K/mm3 (0.0-0.8) H 04/18/19 14:45 Eos # 0.1 K/mm3 (0.0-0.4) 04/18/19 14:45 Baso # 0.0 K/mm3 (0.0-0.1) 04/18/19 14:45 Seg Neutrophils % 66.6 % (40.0-70.0) 04/18/19 14:45 Seg Neutrophils # 8.3 K/mm3 (1.8-7.7) H 04/18/19 14:45 Sodium 142 mmol/L (137-145) 04/18/19 14:45 Potassium 4.3 mmol/L (3.6-5.0) 04/18/19 14:45 Chloride 103.5 mmol/L (98-107) 04/18/19 14:45 Carbon Dioxide 21 mmol/L (22-30) L 04/18/19 14:45 Anion Gap 22 mmol/L 04/18/19 14:45 BUN 23 mg/dL (7-17) H 04/18/19 14:45 Creatinine 0.9 mg/dL (0.7-1.2) 04/18/19 14:45 Estimated GFR > 60 ml/min 04/18/19 14:45 BUN/Creatinine Ratio 26 % 04/18/19 14:45 Glucose 129 mg/dL (65-100) H 04/18/19 14:45 POC Glucose 122 (70-105) H 04/18/19 14:31 Lactic Acid 1.00 mmol/L (0.7-2.0) 04/18/19 23:28 Calcium 9.4 mg/dL (8.4-10.2) 04/18/19 14:45 Total Bilirubin 0.40 mg/dL (0.1-1.2) 04/18/19 14:45 AST 31 units/L (5-40) 04/18/19 14:45 ALT 33 units/L (7-56) 04/18/19 14:45 Alkaline Phosphatase 155 units/L (35-129) H 04/18/19 14:45 Ammonia 32.0 umol/L (25-60) 04/19/19 15:33 Troponin T < 0.010 ng/mL (0.00-0.029) 04/18/19 20:18 Total Protein 8.4 g/dL (6.3-8.2) H 04/18/19 14:45 Albumin 3.6 g/dL (3.9-5) L 04/18/19 14:45 Albumin/Globulin Ratio 0.8 % 04/18/19 14:45 Urine Color Jackie (Yellow) 04/18/19 21:40 Urine Turbidity Slightly-cloudy (Clear) 04/18/19 21:40 Urine pH 5.0 (5.0-7.0) 04/18/19 21:40 Ur Specific [place] 1.025 (1.003-1.030) 04/18/19 21:40 Urine Protein 30 mg/dl mg/dL (Negative) 04/18/19 21:40 Urine Glucose (UA) Neg mg/dL (Negative) 04/18/19 21:40 Urine Ketones Tr mg/dL (Negative) 04/18/19 21:40 Urine Blood Neg (Negative) 04/18/19 21:40 Urine Nitrite Neg (Negative) 04/18/19 21:40 Urine Bilirubin Neg (Negative) 04/18/19 21:40 Urine Urobilinogen < 2.0 mg/dL (<2.0) 04/18/19 21:40 Ur Leukocyte Esterase Neg (Negative) 04/18/19 21:40 Urine WBC (Auto) 1.0 /HPF (0.0-6.0) 04/18/19 21:40 Urine RBC (Auto) 4.0 /HPF (0.0-6.0) 04/18/19 21:40 U Epithel Cells (Auto) < 1.0 /HPF (0-13.0) 04/18/19 21:40 Urine Mucus 1+ /HPF 04/18/19 21:40 Active Medications - Current Medications Current Medications: Generic Name Dose Route Start Last Admin Trade Name Freq PRN Reason Stop Dose Admin Acetaminophen 650 mg 04/19/19 00:29 Tylenol PO Q4H PRN Pain MILD(1-3)/Fever >100.5/GUEVARA Hydralazine HCl 10 mg 04/19/19 15:01 Apresoline IV Q4HR PRN Hypertension Sodium Chloride 1,000 mls @ 75 mls/hr 04/19/19 00:30 04/19/19 11:29 Nacl 0.9% 1000 Ml IV 75 mls/hr DIRECT ELANA Administration Magnesium Hydroxide 30 ml 04/19/19 00:29 Milk Of Magnesia PO Q4H PRN Constipation Morphine Sulfate 2 mg 04/19/19 00:29 Morphine IV Q4H PRN Pain, Moderate (4-6) Ondansetron HCl 4 mg 04/19/19 00:29 Zofran IV Q8H PRN Nausea And Vomiting Sodium Chloride 10 ml 04/19/19 10:00 04/19/19 11:39 Sodium Chloride Flush Syringe 10 Ml IV 10 ml BID ELANA Administration Sodium Chloride 10 ml 04/19/19 00:29 Sodium Chloride Flush Syringe 10 Ml IV PRN PRN LINE FLUSH
[2019-04-19] MEDS: hydrALAZINE 20 MG/1 ML INJ IV PRN (16:51)
[2019-04-20 08:19] LABS: Basophils # (Auto) 0.1 K/mm3 (0.0-0.1); Basophils % (Auto) 0.6 % (0.0-1.8); Eosinophils # (Auto) 0.1 K/mm3 (0.0-0.4); Eosinophils % (Auto) 0.9 % (0.0-4.3); Hematocrit 40.6 % (30.3-42.9); Hemoglobin 13.8 gm/dl (10.1-14.3); Lymphocytes # (Auto) 3.5 K/mm3 (1.2-5.4); Lymphocytes % (Auto) 29.1 % (13.4-35.0); Mean Corpuscular HGB Conc 34 % (30-34); Mean Corpuscular Volume 88 fl (79-97); Monocytes # (Auto) 0.9 K/mm3 (0.0-0.8); Monocytes % (Auto) 7.3 % (0.0-7.3); Platelet Count 240 K/mm3 (140-440); Red Blood Count 4.59 M/mm3 (3.65-5.03); Red Cell Distribution Width 13.8 % (13.2-15.2)
[2019-04-20 08:30] LABS: INR 1.07 (0.87-1.13)
[2019-04-20 08:31] LABS: Partial Thromboplastin Time 35.5 Sec. (24.2-36.6)
[2019-04-20 08:45] LABS: BUN/Creatinine Ratio 24; Blood Urea Nitrogen 19 mg/dL (7-17); Calcium 9.3 mg/dL (8.4-10.2); Hemolysis Index 1
[2019-04-20] MEDS: hydrALAZINE 20 MG/1 ML INJ IV PRN (10:08)
--- NOTE | 2019-04-20 11:05 | Discharge Summary ---
Providers - Providers Date of Admission: 04/18/19 23:11 Attending physician: MENDEZ ALBERTO MD 04/19/19 12:11 Consult to Mental Health [CONS] Routine Reason For Exam: medication management Place consult to:: pyschosis Notified:: YES Phone number called:: [phone] Was contact made?: Yes If yes, spoke with:: LAUREN Time called:: 12:23 Comment:: FRANCESCO [facility] Reason for admission: ENCEPALOPTHY Condition: Fair Hospital course: 89-year-old female with known history of hypertension, history of schizophrenia has CVA resident of an assisted living facility [place] presents to the emergency room today because of changes in mental status. Patient has not been acting his usual self. There has been no history of fever or chills, no chest pain no shortness of breath, no nausea vomiting, no diarrhea and no hematuria or dysuria. Patient is not a good historian most of the information was gotten from the emergency room physician as family was not available. Chest x-ray is normal CT head shows no acute pathology * Patient was noted to have wheezing this morning but no evidence of respiratory failure will add DuoNeb still with medical regimen with improvement * No other toxic effect is noted * Plan for discharge if ok with Pysch following medication optimization * Patient was also adequately hydrated * Empirically treated with abx due to leukocytosis, review of records shows recurrent leukocytosis * Patient drinks with assistance - Patient Problems (1) Acute metabolic encephalopathy (2) Dehydration (3) Hypertension (4) Hyperlipidemia (5) Malnutrition (6) Paranoid Schizophrenia (7) Dementia (8) Leukocytosis (9) pRIOR CVA Disposition: [id number] HOME UNDER HOME [facility] Time spent for discharge: 35 MINS Core Measure Documentation - Palliative Care Palliative Care/ Comfort Measures: Not Applicable - Core Measures Any of the following diagnoses?: none Exam - Physical Exam Narrative exam: VITAL SIGNS: Reviewed. GENERAL: The patient appears normally, Although confused, Vital signs as documented. HEAD: No signs of head trauma. EYES: Pupils are equal. Extraocular motions intact. EARS: Hearing grossly intact. MOUTH: Oropharynx is normal. NECK: No adenopathy, no JVD. CHEST: Chest with clear breath sounds bilaterally. No wheezes, rales, or rhonchi. CARDIAC: Regular rate and rhythm. S1 and S2, without murmurs, gallops, or rubs. VASCULAR: No Edema. Peripheral pulses normal and equal in all extremities. ABDOMEN: Soft, non tender and non distended. No rebound or guarding, and no masses palpated. Bowel Sounds normal. MUSCULOSKELETAL: Good range of motion of all major joints. Extremities without clubbing, cyanosis or edema. NEUROLOGIC EXAM: Alert and awake unable to assess orientation as patient does not answer any question but just moans. no focal sensory or strength deficits. PSYCHIATRIC: Mood distracted. SKIN: detail exam as documented in skin assessment - Constitutional Vitals: Temp Pulse Resp BP Pulse Ox 98.7 F 70 20 173/54 98 04/20/19 07:57 04/20/19 10:08 04/20/19 07:57 04/20/19 10:08 04/20/19 07:57 Plan Activity: advance as tolerated, fall precautions Diet: low fat Special Instructions: record daily weights, record daily BP diary Follow up with: YONY CALLES MD [Primary Care Provider] - 3-5 Days Prescriptions: levoFLOXacin [Levaquin TAB] 500 mg PO QDAY #3 tablet
--- NOTE | 2019-04-20 13:12 | Consultation ---
History of Present Illness - Reason for Consult Consult date: 04/20/19 Reason for consult: pyschosis - Chief Complaint Chief complaint: Altered mental status - History of Present Psychiatric Illness History of Present Illness: Kaley Perez is an 89y/o female patient who is said to be admitted into the hospital for altered mental status. During my interview with the patient today she was found in bed, awake. Disheveled, and disorganized. The patient is shouting out and could be heard as I was approaching her room. She is making incomprehensible sounds and noises. The patient is fidgety, and rubbing her hand back and forth through her hair. She has involuntary movements of her arms and mouth. PAST PSYCHIATRIC HISTORY: Unable to assess due to patient's disorganization REVIEW OF SYSTEMS Unable to assess due to patient's disorganization PAST MEDICAL HISTORY: Unable to assess Family Psychiatric History None reported or documented SOCIAL HISTORY Unable to assess due to patient's disorganization MSE Appearance: In bed. Disheveled. Involuntary movements Behavior: Fidgety Mood: Unable to assess Affect: consisted with mood Thought Process: Disorganized Speech: Unable to assess Thought Content Unable to assess Consciousness: Alert Cognition/Memory: Impaired Insight/Judgment:Poor Assessment: Schizoaffective Disorder, Dementia w/behavioral disturbances Treatment Plan Depakote DR 250mg po BID to stabalize mood and help with behavioral disturbances Risperidone 0.5mg p BID to decrease psychosis and improve mentation Trazodone 50mg po daily to induce sleep Melatonin 5mg po PRN to promote rest Geodon 10mg IM po q6h agitation Medical: Per primary team Sitter: Defer to primary team Disposition: The patient does meet criteria for acute psychiatric inpatient treatment. Can transfer to [facility] once medially cleared Please call with any questions or concerns. Thank you for this consult. Medications and Allergies Allergies Allergy/AdvReac Type Severity Reaction Status Date / Time clindamycin Allergy Anaphylaxis Verified 08/03/14 23:57 Penicillins Allergy Anaphylaxis Verified 08/03/14 23:57 Home Medications Medication Instructions Recorded Confirmed Last Taken Type Quetiapine Fumarate [Seroquel] 150 mg PO TID 01/20/16 04/19/19 02/17/18 19:46 History AtorvaSTATin 10 mg PO DAILY #30 tablet 02/01/17 04/19/19 Unknown Rx Pantoprazole [Protonix TAB] 40 mg PO QDAY #30 tablet 02/01/17 04/19/19 02/16/18 08:00 Rx Sertraline [Zoloft] 50 mg PO QDAY #30 tablet 02/01/17 04/19/19 02/16/18 08:00 Rx cloNIDine-TTS PATCH [Catapres-Tts 1 patch TD Q7D #4 patch 02/01/17 04/19/19 Unknown Rx 0.2mg Patch] Donepezil [Aricept] 10 mg PO HS 02/17/18 04/19/19 02/16/18 20:00 History carvediloL [Coreg] 12.5 mg PO BID 02/17/18 04/19/19 02/17/18 08:00 History Aspirin 81 mg PO DAILY 08/26/18 04/19/19 Unknown History Fe Fumarate/FA/Mv, Min Comb#15 1 each PO BID 08/26/18 04/19/19 Unknown History [Hemocyte Plus] Omeg3/Dha/Epa/Fish Oil/L.casei 1 cap PO DAILY 08/26/18 04/19/19 Unknown History [Restora Capsule] Simethicone [Gas Relief] 125 mg PO BID 08/26/18 04/19/19 Unknown History levoFLOXacin [Levaquin TAB] 500 mg PO QDAY #3 tablet 04/20/19 Unknown Rx Active Meds: Active Medications Acetaminophen (Tylenol) 650 mg PO Q4H PRN PRN Reason: Pain MILD(1-3)/Fever >100.5/GUEVARA Hydralazine HCl (Apresoline) 10 mg IV Q4HR PRN PRN Reason: Hypertension Last Admin: 04/20/19 10:08 Dose: 10 mg Documented by: Sodium Chloride (Nacl 0.9% 1000 Ml) 1,000 mls @ 75 mls/hr IV DIRECT ELANA Last Admin: 04/19/19 11:29 Dose: 75 mls/hr Documented by: Levofloxacin/Dextrose (Levaquin 750mg/150ml) 750 mg in 150 mls @ 100 mls/hr IV Q48H ELANA; Protocol Last Admin: 04/20/19 11:31 Dose: 100 mls/hr Documented by: Magnesium Hydroxide (Milk Of Magnesia) 30 ml PO Q4H PRN PRN Reason: Constipation Morphine Sulfate (Morphine) 2 mg IV Q4H PRN PRN Reason: Pain, Moderate (4-6) Ondansetron HCl (Zofran) 4 mg IV Q8H PRN PRN Reason: Nausea And Vomiting Sodium Chloride (Sodium Chloride Flush Syringe 10 Ml) 10 ml IV BID ELANA Last Admin: 04/20/19 10:09 Dose: 10 ml Documented by: Sodium Chloride (Sodium Chloride Flush Syringe 10 Ml) 10 ml IV PRN PRN PRN Reason: LINE FLUSH Mental Status Exam - Vital signs Last Vital Signs Temp 98.7 F 04/20/19 07:57 Pulse 70 04/20/19 10:08 Resp 20 04/20/19 07:57 BP 173/54 04/20/19 10:08 Pulse Ox 98 04/20/19 07:57 Results Result Diagrams: 04/20/19 08:05 04/20/19 08:05 Abnormal lab results 04/20/19 04/20/19 Range/Units 08:05 08:05 WBC 12.1 H (4.5-11.0) K/mm3 [place] # 0.9 H (0.0-0.8) K/mm3 Carbon Dioxide 21 L (22-30) mmol/L BUN 19 H (7-17) mg/dL All other labs normal.
[2019-04-20] MEDS ORDERED: MELATONIN 5 MG TAB PO PRN (13:20)
[2019-04-20] MEDS ORDERED: ZIPRASIDONE MESYLATE 20 MG VIAL IM PRN (13:20)
[2019-04-20 14:57] VITALS: BP 117/71
[2019-04-20] MEDS ORDERED: QUEtiapine 200 MG TAB PO SCH (22:00)
[2019-04-20] MEDS ORDERED: risperiDONE 0.25 MG TAB PO SCH (22:00)
[2019-04-20] MEDS ORDERED: DIVALPROEX DR 250 MG TAB PO SCH (22:00)
[2019-04-20] MEDS ORDERED: traZODone 50 MG TAB PO SCH (22:00)
[2019-04-21] MEDS ORDERED: SERTRALINE 50 MG TAB PO SCH (10:00)
== END 2019-04-20 16:00 | disposition home health service (06) | DRG 71 ==
LOC: ED 14:13 → 2B-ACE 23:11
PROVIDERS: ADMIT Internal Medicine Geriatric Medicine; ATTEND Internal Medicine
DX: G93.41 Metabolic encephalopathy (principal); F03.91 Unspecified dementia, unspecified severity, with behavioral disturbance; E46 Unspecified protein-calorie malnutrition; F20.0 Paranoid schizophrenia; E86.0 Dehydration; I10 Essential (primary) hypertension; E78.5 Hyperlipidemia, unspecified; D72.829 Elevated white blood cell count, unspecified; K21.9 Gastro-esophageal reflux disease without esophagitis; Z88.0 Allergy status to penicillin; Z88.1 Allergy status to other antibiotic agents; Z79.82 Long term (current) use of aspirin; Z79.899 Other long term (current) drug therapy; Z86.73 Personal history of transient ischemic attack (TIA), and cerebral infarction without residual deficits; Z68.36 Body mass index [BMI] 36.0-36.9, adult; Z98.49 Cataract extraction status, unspecified eye; Z98.51 Tubal ligation status
CPT/HCPCS: 36415; 70450; 71045; 80048; 80053; 81001; 82140; 82962; 84443; 84484; 85025; 85610; 85730; 87040; 93005; 93010; G0378; J0360; J1956; J3486; J7030